=== PATIENT | male | born 1960 | race Caucasian/White ===

== ENCOUNTER 2018-02-22 07:30 | Inpatient (IN) | payer OTHER, SELFPAY ==
[2018-02-22] VITALS (31 sets, daily range): BP systolic 90–137; BP diastolic 56–107; PULSE 88–176; RESP 12–23; TEMP 36.6–36.9; O2SAT 94–98; BMI 38.0; BMI 38.1
--- NOTE | 2018-02-22 07:44 | ED.DCSUM_ITS ---
- ER Visit Summary Date of Service: 02/22/18 Chief Complaint: Recurrent A. fib History of Present Illness: The patient is a 57 M history of A. fib, non-insulin -dependent diabetes, hypertension, high cholesterol. Patient is currently on Xarelto and Cardizem for his A. fib. Believes that he went back into it sometime yesterday afternoon. Denies chest pain. Physical Examination: Vital signs his heart rate 176 and regular with A. fib RVR. His blood pressure is 123/73. H EENT exam unremarkable. Neck nontender no JVD. Lungs clear to auscultation bilaterally. Heart A. fib RVR rate about 170. Abdomen soft nontender. He is moving all 4 extremities. Calves are nontender without edema. Neurologically is awake and alert without focal motor deficits. Test Results: Portable one view chest x-ray showed no body read by myself. EKG showed atrial fibrillation with RVR with a heart rate of 176. Her white count of 14. Hemoglobin is 16. Electrolytes showed a normal gap of 15 and a creatinine which was elevated 2.1. Troponin was also elevated 0.076. Emergency Department Course and Treatment: Patient with recurrent A. fib RVR. Treated with IV Cardizem. Treatment Plan: Repeat exam currently the patient is resting comfortably. He is received 1 IV bolus of Cardizem. Is currently receiving a second bolus and was placed on a Cardizem drip. He is handling the A. fib RVR well. I discussed all test results with him and his . Disposition: Admission Impression: Recurrent atrial fibrillation with rapid ventricular rate History of com-[id number] diabetes. This note was generated with [employer] dictation software. It may contain incorrect words, spelling, and punctuation that were not noted in review of the chart prior to signing ED Disposition - Plan for ED Patient: Chief Complaint: Palpitations Referrals: Elder Morales MD [Primary Care Provider] -
[2018-02-22] MEDS: dilTIAZem 25 MG/5 ML Vial IV BOLUS (07:46)
[2018-02-22 07:48] LABS: Absolute Lymphocyte Count 3.83 X10^3/ul (0.83-4.51); Absolute Neutrophil Count 8.6 X10^3/uL (2.0-7.7); Basophil# 0.02 X10^3/uL; Basophil% 0.1 % (0-1); Eosinophil# 0.16 X10^3/uL; Eosinophils% 1.1 % (0-5); Hematocrit 49.5 % (40-54); Hemoglobin 16.6 g/dl (13.0-16.5); Lymphocyte # 3.83 X10^3/ul (4.0); Lymphocyte % 27.4 % (19-41); Mean Corp Hgb Conc 33.5 g/gl (32-36); Mean Corpuscular Hgb 29.5 pg (27.0-32.0); Mean Corpuscular Volume 88.1 fL (80-94); Mean Platelet Vol. 11.3 fl (6.2-12.0); Monocyte# 1.35 X10^3/uL; Monocyte% 9.7 % (0-10); Neutrophil # 8.57 X10^3/uL (2.7-7.7); Neutrophil % 61.4 % (47-70); Platelet Count 220 K/mm3 (150-450); RBC Distribution Width CV 13.9 % (11.6-14.6); RBC Distribution Width SD 44.5 fl (35.1-43.9); Red Blood Count 5.62 M/mm3 (4.6-6.2)
[2018-02-22 07:49] LABS: POSITIVE COUNT NO; POSITIVE DIFFERENTIAL NO; POSITIVE MORPHOLOGY NO
[2018-02-22 08:03] LABS: Anion Gap 15 (5-15); BUN 29 mg/dL (7-18); BUN/Creat Ratio 13.8 RATIO (10-20); Calcium,Total 9.6 mg/dL (8.5-10.1); Chloride 104 mmol/L (98-107); EST Glomerular Filtration Rate 35 mL/min (>60); Est Glom Filt Rate - Afr Amer 42 mL/min (>60); Glucose 186 mg/dL (74-106); Potassium 3.7 mmol/L (3.5-5.1); Sodium Level 141 mmol/L (136-145)
[2018-02-22] MEDS: dilTIAZem 25 MG/5 ML Vial 20 MG IV BOLUS (08:07)
--- NOTE | 2018-02-22 08:17 | NURSING ---
DR BOWEN JENSEN
[2018-02-22] MEDS: 0.9% Normal Saline 1,000 ML 999 ML IV ×2 (08:22→09:01)
--- NOTE | 2018-02-22 08:27 | NURSING ---
112 AFALEXI W BOWEN ZHENG/MIKEY
--- NOTE | 2018-02-22 08:30 | PCM.HP.STD ---
Problem List (1) Paroxysmal a-fib Status: Chronic (2) Morbid obesity with BMI of 40.0-44.9, adult Status: Chronic (3) Type II diabetes mellitus Status: Chronic (4) Hypertension Status: Chronic (5) Atrial fibrillation with RVR Status: Acute History of Present Illness Date of Admission: 02/22/18 Chief Complaint: Palpitations The patient is a 57 year old M with a h/o DM2, HTN, HLD and afib who presents after last night he noticed that he was having palpitations. He is on cardizem and xarelto at home and he thought that if he slept he may feel better. He woke up this morning with the same feeling of palpitations so he came into the ER. HE has been doing well recently, however his work-place is very hot and he feels he may have become dehydrated yesterday. He presented to the ER with A-fib in RVR, an LEE d/t dehydration and an SBP of 93. He was given 2 cardizem boluses and was started on IVF. His heart rate did come down but his afib did not resolve and he has had to be cardioverted in the past. Past Medical History Past Medical History (Chronic Problems): Chronic Problems Paroxysmal a-fib (Chronic) Sleep apnea (Chronic) LVH (left ventricular hypertrophy) (Chronic) Morbid obesity with BMI of 40.0-44.9, adult (Chronic) Type II diabetes mellitus (Chronic) Nonalcoholic steatohepatitis (Chronic) Hypertension (Chronic) Allergies Iodinated Contrast- Oral and IV Dye [Iodinated Contrast Media - IV Dye] Allergy (Severe, Verified 02/22/18 07:34) Anaphylaxis Home Medications: Ambulatory Orders Medication Instructions Recorded Atorvastatin Calcium [Lipitor] 10 mg PO QHS 02/22/18 Diltiazem HCl [Cartia Xt] 120 mg PO DAILY 02/22/18 Empagliflozin [Jardiance] 10 mg PO DAILY 02/22/18 Lisinopril [Zestril] 30 mg PO BID 02/22/18 Metformin HCl 1,000 mg PO BID 02/22/18 Omeprazole 40 mg PO DAILY 02/22/18 Pioglitazone HCl 15 mg PO DAILY 02/22/18 Rivaroxaban [Xarelto] 20 mg PO QHS 02/22/18 Sumatriptan Succinate [Imitrex] 100 mg PO .X1 PRN 02/22/18 Surgical History: cholecystectomy Psychiatric History: No pertinent psych hx Lives: Spouse/ Significant Other Smoking Status: Never smoker Alcohol: None Drugs: None - *Family History Maternal History Items: Diabetes, Heart Disease, Hypertension Paternal History Items: No pertinent history Review of Systems Constitutional: Denies: Chills, Fever, Weight Change Eyes: Denies: Blurred vision, Double vision HEENT: Denies: Head Aches, Sinus Congestion, Sinus Drainage Cardiovascular: Reports: Palpitations. Denies: Chest Pain, Chest Pressure, Chest Tightness, Light Headedness Respiratory: Denies: Cough, Shortness of breath at rest, Sputum production Gastrointestinal: Denies: Abdominal Pain, Nausea, Vomiting Genitourinary: Denies: Dysuria Musculoskeletal: Denies: Joint Pain, Joint Tenderness Skin: Denies: Rash, Wounds Neurological: Denies: Numbness, Tingling, Focal weakness Psychiatric: Denies: Anxiety, Depression, Homicidal Ideations, Suicidal Ideations Hematologic/ Lymphatic: Denies: Easy Bruising, Easy Bleeding VTE Information - Inpt Only VTE Present on Admission: No Patient Problems: Active and Suspected Problems Atrial fibrillation with RVR (Acute) - Physical Exam General: Alert, Oriented x3, Cooperative, No apparent distress HEENT: Atraumatic, EOMI, Normocephalic Oral: Moist Mucosa Neck: Supple, No JVD Lungs: Clear to auscultation, Normal air movement, No rhonchi, No wheeze, No rales Cardiovascular: Regular rate, Regular Rhythm, Normal S1, Normal S2, No murmurs Abdomen: Soft, Non Tender, Non-Distended, No Hepato-splenomegaly Extremities: No edema, Capillary Refill Less than 3 Seconds Skin: No rashes, No breakdown Neurological: Neuro grossly intact, Motor Exam 5/5 strength throughout, Sensory exam intact to light touch and pain Psych/Mental Status: Normal Affect, Appropriate Vital Signs Temp Pulse Resp BP Pulse Ox 97.9 F 115 H 18 93/63 98 02/22/18 07:31 02/22/18 08:09 02/22/18 08:09 02/22/18 08:09 02/22/18 08:09 Oxygen Flow Rate (L/min) 2 Oxygen Delivery Method Room Air Weight: 304 lb Body Mass Index (BMI) 38.0 Laboratory Tests Past 24 Hrs 02/22/18 02/22/18 07:35 07:35 WBC 14.0 H RBC 5.62 Hgb 16.6 H Hct 49.5 MCV 88.1 MCH 29.5 MCHC 33.5 RDW 13.9 RDW Differential 44.5 H Plt Count 220 MPV 11.3 Immature Gran % (Auto) 0.300 Neut % (Auto) 61.4 Lymph % (Auto) 27.4 Bond % (Auto) 9.7 Eos % (Auto) 1.1 Baso % (Auto) 0.1 Absolute Neuts (auto) 8.6 H Absolute Lymphs (auto) 3.83 Total Counted Not Reportable Sodium 141 Potassium 3.7 Chloride 104 Carbon Dioxide 22.0 Anion Gap 15 BUN 29 H Creatinine 2.10 H Estim Creat Clear Calc 47.50 Est GFR (MDRD) Af Amer 42 L Est GFR (MDRD) Non-Af 35 L BUN/Creatinine Ratio 13.8 Glucose 186 H Calcium 9.6 Troponin I 0.076 H Assessment/Plan All Active Problems Atrial fibrillation with RVR (Acute) 1. Paroxysmal a-fib with RVR/LEE secondary to dehydration/Elevated troponin d/t demand ischemia - He was given 2 boluses of cardizem in the ER and started on a cardizem drip which will be continued - He will probably have to increase his cardizem PO at home - May need to consult cardiology if his a-fib does not resolve medically for a possible cardioversion - Trend troponins and obtain TSH - Echo today - c/w xarelto 2. HTN/HLD - hold his lisinopril with his LEE - Cardizem gtt will control his BP - He did take his 120 mg of cardizem today - C/w lipitor 3. DM2 - he is on multiple outpatient medications which I held on admission - start SSI and monitor DVT: Xarelto Diet: DM Code: FULL Dispo: Plan to c/s cardiology if afib does not resolve Code Visit Inpatient E&M: 70860 Init Hosp L3
[2018-02-22 09:43] LABS: Thyroid Stim Hormone (TSH) 2.26 uIU/mL (0.358-3.74)
[2018-02-22] MEDS: 0.9% Normal Saline 1,000 ML 100 ML IV ×2 (09:43→16:31)
[2018-02-22] MEDS: Insulin Lispro 100 UNIT/ML INSULN.PEN SQ ×2 (11:05→21:01)
[2018-02-22 11:11] LABS: Bedside Glucose 159 mg/dL (70-110)
[2018-02-22] MEDS: Rivaroxaban 20 MG Tablet PO (16:29)
[2018-02-22 16:35] LABS: Bedside Glucose 122 mg/dL (70-110)
[2018-02-22] MEDS: Atorvastatin Calcium 10 MG Tablet PO (21:01)
[2018-02-22 21:11] LABS: Bedside Glucose 199 mg/dL (70-110)
[2018-02-23] VITALS (35 sets, daily range): BP systolic 108–147; BP diastolic 66–95; PULSE 77–161; RESP 11–30; TEMP 36.6–36.9; O2SAT 93–100
[2018-02-23] MEDS: 0.9% Normal Saline 1,000 ML 100 ML IV ×3 (02:57→21:40)
[2018-02-23 06:02] LABS: Anion Gap 12 (5-15); BUN 18 mg/dL (7-18); Calcium,Total 8.5 mg/dL (8.5-10.1); Chloride 107 mmol/L (98-107); Creatinine, Serum 1.06 mg/dL (0.70-1.30); EST Glomerular Filtration Rate 77 mL/min (>60); Est Glom Filt Rate - Afr Amer 93 mL/min (>60); Estimated Creatinine Clearance 94.11 ml/min; Glucose 140 mg/dL (74-106); Potassium 3.5 mmol/L (3.5-5.1); Sodium Level 141 mmol/L (136-145)
[2018-02-23 06:51] LABS: Bedside Glucose 143 mg/dL (70-110)
--- NOTE | 2018-02-23 09:41 | CASEMGMT ---
SW spoke with patient and his and completed assessment. Patient lives with his in a 1 story home. He has an appt at [facility] for his knee, but they do not remember the name of the physician. They do not anticipate any d/c needs. Gabriela SWEENEY MSW
[2018-02-23 11:30] LABS: Bedside Glucose 159 mg/dL (70-110)
[2018-02-23] MEDS: dilTIAZem 25 MG/5 ML Vial 10 MG IV BOLUS (12:09)
--- NOTE | 2018-02-23 14:14 | CASEMGMT ---
According to [employer] website, the following are in-network tertiary facilities: [facility], [facility], [facility], [facility], [facility], [facility], and . Bradley TUCKER CM
[2018-02-23] MEDS: dilTIAZem CD 240 MG Capsule PO (14:41)
--- NOTE | 2018-02-23 15:05 | PCM.CONS.C ---
Problem List (1) Atrial fibrillation with RVR Status: Acute (2) Paroxysmal a-fib Status: Chronic (3) Sleep apnea Status: Chronic (4) LVH (left ventricular hypertrophy) Status: Chronic (5) Type II diabetes mellitus Status: Chronic (6) Hypertension Status: Chronic Reason for Consult Date of Consultation: 02/23/18 Reason for Consultation: Paroxysmal atrial fibrillation, diabetes, obesity, obstructive sleep apnea, hypertension. History of Present Illness: The patient is a 57 year old M, initially seen by me in the hospital in consultation on 04/03/15. He has a history of obstructive sleep apnea, does not comply with CPAP, also has a history of hypertension and was discovered to have an JEANA after undergoing gallbladder surgery about 4 years ago. Patient presented in March 2015 with new onset atrial fibrillation with rapid ventricular response in the face of diarrhea, hypokalemia and hypomagnesemia. Patient was treated medically with oral anticoagulation, Coreg and digoxin. He underwent successful DC cardioversion on 03/22/15. The patient then returned in March 2015 with recurrent atrial fibrillation and was placed on Cardizem drip and switch to p.o. Cardizem. He underwent a stress test which was negative for inducible ischemia. Patient was again successfully cardioverted although I do not remember whether was chemically or by DC cardioversion. He has not undergone consultation with Dr. Gomes for atrial fibrillation ablation. To the best my knowledge the patient has been in normal sinus rhythm as he is very aware when he goes in and out of atrial fibrillation. While the patient had a flat tire on route 30 yesterday in the 90? heat, he noted that he went back in atrial fibrillation with rapid ventricular response. Patient had no associated chest pain or shortness of breath. He has been compliant with his Xarelto therapy for the past 3 years. When his atrial fibrillation did not improve he sought medical attention at [facility] ER where his initial EKG showed atrial fibrillation with rapid ventricular response. He was placed on IV Cardizem drip Currently the patient's and atrial fibrillation with rapid ventricular response, resting comfortably in his bed with his family at the bedside. He denies any symptoms at this time. He has not seen Dr. Valdez or Kulwant for CPAP management. His initial troponin was 0.076, then decrease to 0.074, and then finally 0.068.. Patient's potassium was found to be 3.4 and is being replaced with IV supplementation. His initial creatinine was 2.10 but with IV fluid resuscitation has decreased down to normal range. [] Past Medical History Allergies/Adverse Reactions: Allergies Iodinated Contrast- Oral and IV Dye [Iodinated Contrast Media - IV Dye] Allergy (Severe, Verified 02/22/18 07:34) Anaphylaxis Home Medications: Ambulatory Orders Medication Instructions Recorded Atorvastatin Calcium [Lipitor] 10 mg PO QHS 02/22/18 Diltiazem HCl [Cartia Xt] 120 mg PO DAILY 02/22/18 Empagliflozin [Jardiance] 10 mg PO DAILY 02/22/18 Lisinopril [Zestril] 30 mg PO BID 02/22/18 Metformin HCl 1,000 mg PO BID 02/22/18 Omeprazole 40 mg PO DAILY 02/22/18 Pioglitazone HCl 15 mg PO DAILY 02/22/18 Rivaroxaban [Xarelto] 20 mg PO QHS 02/22/18 Sumatriptan Succinate [Imitrex] 100 mg PO .X1 PRN 02/22/18 Past Medical History (Chronic Problems): Chronic Problems Paroxysmal a-fib (Chronic) Sleep apnea (Chronic) LVH (left ventricular hypertrophy) (Chronic) Morbid obesity with BMI of 40.0-44.9, adult (Chronic) Type II diabetes mellitus (Chronic) Nonalcoholic steatohepatitis (Chronic) Hypertension (Chronic) Surgical History: cholecystectomy Psychiatric History: No pertinent psych hx - *Family History Maternal History Items: Diabetes, Heart Disease, Hypertension Paternal History Items: No pertinent history Lives: Spouse/ Significant Other Smoking Status: Never smoker Alcohol: None Drugs: None Review of Systems - Review of Systems General: Denies: Fever, Night Sweats, Fatigue Cardiovascular: Reports: Palpitations. Denies: Chest Discomfort, Shortness of Breath, Orthopnea, PND, Lightheadedness, Dizziness, Near Syncope, Syncope Respiratory: Denies: Cough, Sputum Production, Hemoptysis Gastrointestinal: Denies: Hematemesis, Hematochezia, Melena Genitourinary: Denies: Dysuria, Hematuria Skin: Denies: Rash Subjectve: Patient laying in bed, no acute distress. Objective: Vital Signs Temp Pulse Resp BP Pulse Ox 97.9 F 120 H 17 129/87 H 97 02/23/18 13:00 02/23/18 14:30 02/23/18 14:30 02/23/18 14:30 02/23/18 14:30 Oxygen Flow Rate (L/min) 2 Oxygen Delivery Method Room Air Weight: 305 lb 1.916 oz Body Mass Index (BMI) 38.1 Intake and Output for Last 24 Hours 02/21/18 02/22/18 02/23/18 23:59 23:59 23:59 Intake Total 1681.2 / 1681.2 2464.2 / 2464.2 Balance 1681.2 / 1681.2 2464.2 / 2464.2 General: Awake, Alert, Oriented x 3 HEENT: PERRL, EOMI, Sclera Non Icteric Neck: Supple, Good ROM, No Lymph Node Enlargement Lungs: Clear to auscultation Cardiovascular: Irregular Rhythm, Normal S1, Normal S2, No Murmurs, No Rubs, No Gallops Vascular: No Carotid Bruits, Normal Femoral Pulses, Normal Radial Pulses, Normal Dorsalis Pedal Pulse, Normal Posterior Tibial Pulses Abdomen: Bowel Sounds Present, Soft, Non Tender, No HSM, No Organomegaly Extremities: No Cyanosis, No Clubbing, No edema Neurological: No Focal Motor or Sensory Deficit 02/23/18 05:10: Sodium 141, Potassium 3.5, Chloride 107, Carbon Dioxide 22.0, Anion Gap 12, BUN 18, Creatinine 1.06, Est GFR (MDRD) Af Amer 93, Est GFR (MDRD) Non-Af 77, BUN/Creatinine Ratio 17.0, Glucose 140 H, Calcium 8.5 Rhythm: EKG: ECHO: Echo today showed an EF of 65%, 1+ MR, unable to quantitate RVSP. Stress Test: Pending Cardiac Cath: PCI: CT Surgery: Holter monitor: EPS: PPM: CXR: Chest CT Scan: Assessment/Plan 1. Paroxysmal atrial fibrillation: The patient has been compliant with his Xarelto therapy, however he is hypo-to euvolemic, and appears to have suffered acute dehydration due to his excessive water loss during the time he was changing his tire on route [address] on Wednesday. The patient has been adequately IV fluid resuscitated however his potassium has not been replaced. His heart rate is not responding to IV Cardizem drip. Previous to this he was on Cardizem CD 120 mg p.o. twice daily and reports he was compliant with that. Unfortunately he is unable to tolerate CPAP mask. I recommended the patient's potassium be replaced, and that we start him on flecainide 100 mg p.o. twice daily. It is possible the patient may chemically cardiovert back to normal rhythm, and if so we will not need to do DC cardioversion. In anticipation of using long-term flecainide therapy and the fact that his last stress test was around 4 years ago, I recommend he undergo a non-walking nuclear stress test tomorrow morning. His troponin release is only minimally elevated, most likely represents type II demand ischemia. He has no anginal symptoms and no dynamic EKG changes to suggest ischemia. He reports he has never had a catheterization in the past. If the patient's stress test is markedly abnormal for ischemia, I would have a low threshold for diagnostic coronary angiography to evaluate him for antiarrhythmic therapy. If however his atrial fibrillation is not chemically cardioverted, and assuming his stress test is negative for inducible ischemia, we will make arrangements for the patient have an elective DC cardioversion tomorrow morning. Either way I would recommend lifelong anticoagulation therapy with Xarelto or equivalent. If the patient is found to have significant coronary disease he may require amiodarone treatment or, more preferably atrial fibrillation ablation so as to preclude him from having to have long-term amiodarone therapy. In addition we will obtain a TSH and T4. 2. Coronary artery disease: Patient has several risk factors for coronary artery disease, and may require lifelong anti-arrhythmic therapy. Echocardiogram shows intact LV function and unable to quantitate RVSP. Recommend a non-walking nuclear stress test. If this is grossly abnormal for ischemia we will need to hold his Xarelto for 3 days time followed by elective cardioversion probably on Wednesday. 3. Hyperlipidemia: Recommend obtaining a fasting lipid profile for further risk stratification. Patient does have a history of MARSHALL which may preclude excessive and aggressive use of statin based medications. For now he can continue Lipitor 10 mg p.o. nightly. 4. Thank you very much for the opportunity to participate in the cardiac care of your patient. Consultation time took place between 2 PM and 2:35 PM. All questions answered of the patient and his family. Code Visit Inpatient E&M: 46050 Init Hosp L2
[2018-02-23 16:03] LABS: Cholesterol 69 mg/dL (200); High Density Lipoprotein 31 mg/dL; Triglycerides 145 mg/dL; Very Low Density Lipoprotein 29 mg/dL (5-40)
[2018-02-23 16:40] LABS: Bedside Glucose 200 mg/dL (70-110)
[2018-02-23] MEDS: Insulin Lispro 100 UNIT/ML INSULN.PEN SQ (16:46)
[2018-02-23] MEDS: Flecainide 100 MG Tablet PO ×2 (16:46→21:10)
[2018-02-23] MEDS: Rivaroxaban 20 MG Tablet PO (16:47)
--- NOTE | 2018-02-23 18:13 | PCM.PN.HOSP ---
Patient Problems: Active and Suspected Problems Atrial fibrillation with RVR (Acute) Subjective: f/u for afib with RVR Patient seen and examined Looks and feels better Still tachy though Vitals/I&O's: Vital Signs Temp Pulse Resp BP Pulse Ox 97.9 F 120 H 19 H 127/89 H 96 02/23/18 17:00 02/23/18 17:00 02/23/18 17:00 02/23/18 17:00 02/23/18 17:00 Oxygen Flow Rate (L/min) 2 Oxygen Delivery Method Room Air Weight: 138.4 kg Body Mass Index (BMI) 38.1 Intake and Output for Last 24 Hours 02/21/18 02/22/18 02/23/18 23:59 23:59 23:59 Intake Total 1681.2 / 1681.2 2464.2 / 2464.2 Balance 1681.2 / 1681.2 2464.2 / 2464.2 General: Alert, Oriented x3, Cooperative Lungs: - - non labored Abdomen: - - moves with resp Laboratory Results 02/22/18 20:59: POC Glucose 199 H 02/23/18 05:10: Sodium 141, Potassium 3.5, Chloride 107, Carbon Dioxide 22.0, Anion Gap 12, BUN 18, Creatinine 1.06, Estim Creat Clear Calc 94.11, Est GFR (MDRD) Af Amer 93, Est GFR (MDRD) Non-Af 77, BUN/Creatinine Ratio 17.0, Glucose 140 H, Calcium 8.5 02/23/18 05:10: Triglycerides 145, Cholesterol 69, LDL Cholesterol 9, VLDL Cholesterol 29, HDL Cholesterol 31 L 02/23/18 06:46: POC Glucose 143 H 02/23/18 11:25: POC Glucose 159 H 02/23/18 16:33: POC Glucose 200 H Current Medications Atorvastatin Calcium (Lipitor) 10 mg PO QHS [facility] Last Admin: 02/22/18 21:01 Dose: 10 mg Dextrose (D50w Syringe) 0 gm IV X1 PRN; Protocol PRN Reason: Hypoglycemia Diltiazem HCl (Cardizem Cd) 240 mg PO DAILY [facility] Last Admin: 02/23/18 14:41 Dose: 240 mg Flecainide Acetate (Tambocor) 100 mg PO BID [facility] Last Admin: 02/23/18 16:46 Dose: 100 mg Glucagon () 1 mg IM .X1 PRN PRN Reason: Hypoglycemia Sodium Chloride () 1,000 mls @ 100 mls/hr IV .Q10H [facility] Last Admin: 02/23/18 12:53 Dose: 100 mls/hr Diltiazem HCl 125 mg/ Dextrose 125 mls @ 15 mls/hr IV .Q8H20M [facility] PRN Reason: 15 MG/HR Potassium Chloride (Kcl 10meq/100ml) 10 meq in 100 mls @ 100 mls/hr IV BOLUS Q1H [facility] Stop: 02/23/18 18:59 Last Admin: 02/23/18 16:48 Dose: 100 mls/hr Insulin Human Lispro (Humalog Kwikpen (Bkc)) 0 unit SQ ACHS [facility] PRN Reason: Protocol Last Admin: 02/23/18 16:46 Dose: 4 units Magnesium Hydroxide (Milk Of Magnesia) 30 ml PO DAILY PRN PRN Reason: Constipation Pantoprazole Sodium (Protonix) 40 mg PO DAILY [facility] Last Admin: 02/23/18 09:55 Dose: Not Given Rivaroxaban (Xarelto) 20 mg PO DAILY@1700 [facility] Last Admin: 02/23/18 16:47 Dose: 20 mg Rizatriptan Benzoate (Maxalt) 10 mg PO X1 PRN PRN Reason: MIGRAINE SYMPTOMS Sodium Chloride () 5 - 30 ml IV UD PRN PRN Reason: SALINE FLUSH Medical Necessity - Tobacco Use Smoking Status: Never smoker Assessment/Plan All Active Problems Atrial fibrillation with RVR (Acute) 1. Paroxysmal a-fib with RVR. On cardizem drip cardiology consulted. Rate not quite optimally controlled and patient on max dose of cardizem drip Consider adding Amiodarone - Echo today - c/w xarelto 2. HTN/HLD - continue to hold his lisinopril with his LEE 3. DM2 - fair control - Started on SSI. May add basal insulin 4. LEE/Likely prerenal from dehydration. Continue fluid resuscitation Lisinopril on hold. Krystle greco tomorrow Code Visit Inpatient E&M: [id number] [facility] [place] Hosp L3
[2018-02-23] MEDS: Atorvastatin Calcium 10 MG Tablet PO (21:10)
[2018-02-23 21:15] LABS: Bedside Glucose 136 mg/dL (70-110)
[2018-02-24] VITALS (37 sets, daily range): BP systolic 108–149; BP diastolic 70–128; PULSE 74–141; RESP 11–23; TEMP 36.4–37; O2SAT 16–99
[2018-02-24 06:00] LABS: Absolute Neutrophil Count 5.1 X10^3/uL (2.0-7.7); Basophil# 0.01 X10^3/uL; Basophil% 0.1 % (0-1); Eosinophil# 0.08 X10^3/uL; Hematocrit 44.6 % (40-54); Hemoglobin 15.3 g/dl (13.0-16.5); Lymphocyte % 28.6 % (19-41); Mean Corp Hgb Conc 34.3 g/gl (32-36); Mean Corpuscular Hgb 29.7 pg (27.0-32.0); Mean Corpuscular Volume 86.4 fL (80-94); Monocyte# 0.58 X10^3/uL; Monocyte% 7.2 % (0-10); Neutrophil # 5.06 X10^3/uL (2.7-7.7); Neutrophil % 62.9 % (47-70); Platelet Count 162 K/mm3 (150-450); RBC Distribution Width CV 13.6 % (11.6-14.6); Red Blood Count 5.16 M/mm3 (4.6-6.2); White Blood Count 8.1 K/mm3 (4.4-11.0)
[2018-02-24] MEDS: Flecainide 100 MG Tablet PO (06:03)
[2018-02-24 06:05] LABS: POSITIVE COUNT NO; POSITIVE DIFFERENTIAL NO; POSITIVE MORPHOLOGY NO
[2018-02-24 06:13] LABS: International Normalized Ratio 1.6; Partial Thromboplast Time 34.1 Seconds (24.1-36.2); Prothrombin Time (Protime)PT. 19.4 SECONDS (11.7-14.9)
[2018-02-24 06:30] LABS: Anion Gap 9 (5-15); BUN 12 mg/dL (7-18); BUN/Creat Ratio 13.3 RATIO (10-20); Calcium,Total 8.5 mg/dL (8.5-10.1); Chloride 106 mmol/L (98-107); EST Glomerular Filtration Rate 93 mL/min (>60); Est Glom Filt Rate - Afr Amer 113 mL/min (>60); Estimated Creatinine Clearance 110.84 ml/min; Glucose 155 mg/dL (74-106); Potassium 3.6 mmol/L (3.5-5.1); Sodium Level 138 mmol/L (136-145)
[2018-02-24 06:55] LABS: Bedside Glucose 179 mg/dL (70-110)
--- NOTE | 2018-02-24 12:02 | STRESSREP ---
Stress Test Report Date: 02/24/2018 Procedure: Pharmacologic stress nuclear imaging study Indications: Palpitations; atrial fibrillation Consent: Per the patient Procedure: The patient underwent pharmacologic (Regadenoson) evaluation with a peak heart rate of 164 beats per minute (99 predicted maximal heart rate) and a peak blood pressure of 150/88 mmHg. The baseline ECG demonstrated atrial fibrillation; nonspecific ST/T-wave abnormality. The peak pharmacologic ECG demonstrated no obvious ECG changes. There was an occasional PVC during recovery. There was no complaint of chest discomfort during pharmacologic infusion or recovery. The examination was discontinued secondary to completion of protocol. Impression: 1. Pharmacologic (Regadenoson) evaluation 2. Peak pharmacologic ECG with continued nonspecific ST and T-wave abnormality with no obvious ECG changes compared to baseline. 3. There was an occasional PVC during recovery 4. Nuclear images pending Myocardial perfusion imaging study: Technique: The patient was injected with 14.9 millicuries of technetium 99m Cardiolite and subsequently rest SPECT Cardiolite nuclear imaging was obtained in the horizontal long, vertical long, and short axis views. The patient underwent pharmacologic (Regadenoson) evaluation with a peak heart rate of 164 beats per minute (99 % percent predicted maximal heart rate) and a peak blood pressure of 150/88 mmHg. The patient was injected with 44.6 millicuries of technetium 99m Cardiolite and subsequently stress SPECT Cardiolite nuclear imaging was obtained in the horizontal long, vertical long, and short axis views. A gated Cardiolite study at peak stress was obtained. Interpretation: Rest and stress SPECT Cardiolite nuclear imaging status post realignment, normalization, and attenuation correction demonstrate appearance of relative uniform tracer uptake and myocardial perfusion appearing within normal limits. There is end systolic thickening and brightening. The gated Cardiolite study demonstrates myocardial thickening and inward wall motion. The reported LVEF is 55 %. Impression: 1. Rest and stress SPECT Cardiolite nuclear imaging demonstrate relative uniform tracer uptake and myocardial perfusion appearing within normal limits. 2. The gated Cardiolite study reports an LVEF of 55 %. This note was generated with [employer] software. It may contain incorrect words, spelling, and punctuation that were not noted in checking the note before signing.
[2018-02-24] MEDS: dilTIAZem CD 240 MG Capsule PO (12:06)
[2018-02-24] MEDS: Pantoprazole Sodium 40 MG Tablet PO (12:07)
[2018-02-24 12:10] LABS: Bedside Glucose 182 mg/dL (70-110)
[2018-02-24] MEDS: Propofol 200 MG/20 ML Vial 140 MG IV BOLUS (12:35)
--- NOTE | 2018-02-24 12:43 | NURSING ---
Cardioversion completed at this time, Dr. Falcon, Dr. Blum and parking lot laborer RNs in room, vss, shocked x1 with 200J. EKG to confirm NSR
--- NOTE | 2018-02-24 12:57 | PCM.PN.CARD ---
Subjectve: Patient doing well this morning, stress test this morning was negative for inducible ischemia. Patient underwent successful flecainide assisted DC cardioversion without complications on a single shock. Currently normal sinus rhythm. Objective: Vital Signs Temp Pulse Resp BP Pulse Ox 98.2 F 103 H 18 117/92 H 98 02/24/18 09:00 02/24/18 12:50 02/24/18 12:50 02/24/18 12:50 02/24/18 12:50 Oxygen Flow Rate (L/min) 2 Oxygen Delivery Method Room Air Weight: 305 lb 1.916 oz Body Mass Index (BMI) 38.1 Intake and Output for Last 24 Hours 02/22/18 02/23/18 02/24/18 23:59 23:59 23:59 Intake Total 1681.2 / 1681.2 4857.3 / 4857.3 1431.7 / 1431.7 Balance 1681.2 / 1681.2 4857.3 / 4857.3 1431.7 / 1431.7 General: Awake, Alert, Oriented x 3 HEENT: PERRL, EOMI, Sclera Non Icteric Neck: Supple, Good ROM, No Lymph Node Enlargement Lungs: Clear to auscultation Cardiovascular: Regular Rhythm, Normal S1, Normal S2, No Murmurs, No Rubs, No Gallops Vascular: No Carotid Bruits, Normal Femoral Pulses, Normal Radial Pulses, Normal Dorsalis Pedal Pulse, Normal Posterior Tibial Pulses Abdomen: Bowel Sounds Present, Soft, Non Tender, No HSM, No Organomegaly Extremities: No Cyanosis, No Clubbing, No edema Neurological: No Focal Motor or Sensory Deficit 02/23/18 05:10: Triglycerides 145, Cholesterol 69, LDL Cholesterol 9, VLDL Cholesterol 29, HDL Cholesterol 31 L 02/24/18 05:45: WBC 8.1, RBC 5.16, Hgb 15.3, Hct 44.6, MCV 86.4, MCH 29.7, MCHC 34.3, RDW 13.6, RDW Differential 43.0, Plt Count 162, MPV 11.0, Immature Gran % (Auto) 0.200, Neut % (Auto) 62.9, Lymph % (Auto) 28.6, [place] % (Auto) 7.2, Eos % (Auto) 1.0, Baso % (Auto) 0.1, Absolute Neuts (auto) 5.1, Total Counted Not Reportable 02/24/18 05:45: PT 19.4 H, INR 1.6, APTT 34.1 02/24/18 05:45: Sodium 138, Potassium 3.6, Chloride 106, Carbon Dioxide 23.0, Anion Gap 9, BUN 12, Creatinine 0.90, Est GFR (MDRD) Af Amer 113, Est GFR (MDRD) Non-Af 93, BUN/Creatinine Ratio 13.3, Glucose 155 H, Calcium 8.5 Rhythm: EKG: ECHO: Stress Test: Negative for inducible ischemia. Cardiac Cath: PCI: CT Surgery: Holter monitor: EPS: PPM: CXR: Chest CT Scan: Medical Necessity - Tobacco Use Smoking Status: Never smoker Assessment/Plan 1. Paroxysmal atrial fibrillation: The patient has been compliant with his Xarelto therapy, however he is hypo-to euvolemic, and appears to have suffered acute dehydration due to his excessive water loss during the time he was changing his tire on route 30 on Wednesday. The patient has been adequately IV fluid resuscitated however his potassium has not been replaced. His heart rate is not responding to IV Cardizem drip. Previous to this he was on Cardizem CD 120 mg p.o. twice daily and reports he was compliant with that. Unfortunately he is unable to tolerate CPAP mask. I recommended the patient's potassium be replaced, and that we start him on flecainide 100 mg p.o. twice daily. Patient did not chemically converted with flecainide alone. In anticipation of using long-term flecainide therapy and the fact that his last stress test was around 4 years ago, I recommended he undergo a non-walking nuclear stress test. This was performed this morning which was negative for inducible ischemia. His troponin release is only minimally elevated, most likely represents type II demand ischemia. He has no anginal symptoms and no dynamic EKG changes to suggest ischemia. He reports he has never had a catheterization in the past. As the stress test was negative, patient underwent successful DC cardioversion without complications to normal sinus rhythm. He spontaneously awoke, moves all 4 extremities, tolerated the procedure well. If the patient's sinus rhythm remained durable, I recommend he continue flecainide therapy 100 mg p.o. twice daily and return in 1 week's time for an EKG in our office. He will also continue anticoagulation going forward. I have also asked Dr. Blum to see the patient to determine if he can assist with additional CPAP therapy. The patient is unfortunately unable to tolerate CPAP due to the mask, but perhaps there are some techniques available that would assist with this. In addition we will obtain a TSH and T4. 2. Coronary artery disease: Patient has several risk factors for coronary artery disease, and may require lifelong anti-arrhythmic therapy. Echocardiogram shows intact LV function and unable to quantitate RVSP. Recommend a non-walking nuclear stress test. If this is grossly abnormal for ischemia we will need to hold his Xarelto for 3 days time followed by elective cardioversion probably on Wednesday. 3. Hyperlipidemia: Recommend obtaining a fasting lipid profile for further risk stratification. Patient does have a history of MARSHALL which may preclude excessive and aggressive use of statin based medications. For now he can continue Lipitor 10 mg p.o. nightly. 4. Thank you very much for the opportunity to participate in the cardiac care of your patient. Patient may be discharged home. Patient to undergo an EKG in 1 week's time in our office. Patient may be off work until this upcoming Wednesday. Code Visit Inpatient E&M: 65713 Subs Hosp L2
--- NOTE | 2018-02-24 13:01 | PCM.OP.BLANK ---
Problem List (1) Atrial fibrillation with RVR Status: Acute (2) Paroxysmal a-fib Status: Chronic (3) Sleep apnea Status: Chronic (4) LVH (left ventricular hypertrophy) Status: Chronic (5) Type II diabetes mellitus Status: Chronic (6) Hypertension Status: Chronic Operative Report Date of Procedure: 02/24/18 Cardioversion report: Patient remained in atrial fibrillation overnight despite flecainide therapy. His heart rate was better controlled although not optimized with increasing his Cardizem CD. Patient has been compliant with his Xarelto therapy for the past several years. He underwent a stress test this morning which was negative for inducible ischemia. The risks/benefits of the cardioversion procedure were thoroughly expanded the patient and his and informed consent was obtained. With the assistance of Dr. Trip Blum the patient was consented for cardioversion, and the defibrillator pads were placed in the AP position. Patient was given a total of 140 mg of IV propofol in several increments, and once adequate sedation was obtained the patient received a single 200 J biphasic synchronized shock which converted him from atrial fibrillation immediately to normal sinus rhythm. This rhythm remained durable, the pads were removed, the patient spontaneously awoke, moves all 4 extremities and tolerated the procedure well. Conclusions: Successful flecainide assisted DC cardioversion with a single 200 J biphasic synchronized shock. Recommendations: Patient will continue flecainide 100 mg p.o. twice daily, Xarelto, and Cardizem CD 240 mg p.o. daily. He will return to our office in 1 week's time for an EKG to check his QT corrected interval. I advised the patient to avoid very stressful and hot situations which may deplete him on potassium and magnesium and trigger atrial fibrillation. In addition, he will be seen by Dr. Trip Blum for adjustments of his CPAP mask to assist with his obstructive sleep apnea. Patient taught procedure well no complications. Many thanks to Dr. Trip Blum.
--- NOTE | 2018-02-24 13:04 | PCM.OP.BLANK ---
Operative Report Date of Procedure: 02/24/18 CONSCIOUS SEDATION REPORT DATE OF SERVICE: February 24, 2018 BRIEF HISTORY OF PRESENT ILLNESS: The patient is a 57-year-old male who presented to [facility] on February 22 with recurrent atrial fibrillation with rapid ventricular response. He is currently anticoagulated on Xarelto. The patient's last surface echocardiogram revealed an ejection fraction of 65%. He does have a suspected history of obstructive sleep apnea. He has previously undergone a cardioversion approximately 3 years ago. As part of his admission workup, the patient underwent a cardiac stress test which was negative for inducible ischemia. The patient denies a history of previous anesthetic complications. PHYSICAL EXAMINATION: VITAL SIGNS: Reviewed and were acceptable. GENERAL: The patient is an obese male, in no apparent distress, speaking in full sentences. HEENT: Normocephalic, atraumatic. Mucous membranes are moist and pink. Good mouth opening noted. Trachea is midline. Good neck mobility. MPIII CHEST: S1, S2 irregularly irregular. No murmurs, rubs or gallops were noted. LUNGS: Clear to auscultation bilaterally without appreciable wheezes, rales or rhonchi. ABDOMEN: Soft, nontender, nondistended. Positive bowel sounds. Obese. EXTREMITIES: There is no clubbing, cyanosis or edema. ASA Class: II DESCRIPTION OF PROCEDURE: After confirmation of informed consent, the patient's anesthesia plan was reviewed in detail. Propofol was chosen. Risks and benefits were reviewed and the patient agreed to proceed. At 1236, the patient was given his first bolus of propofol. In total, he required 140 mg of propofol to achieve an appropriate level of sedation. Following this, the patient was given a 200 joule synchronized cardioversion by Dr. Falcon at the bedside. This was successful in achieving normal sinus rhythm. The patient was monitored until 1244, at which time he reached his baseline mental status and function. The patient tolerated the procedure well. COMPLICATIONS: None ESTIMATED BLOOD LOSS: None RECOMMENDATIONS: Okay to recover in usual fashion. Code Visit [id number]: Other Procedure See Report - [id number]
[2018-02-24 13:26] LABS: Bedside Glucose 162 mg/dL (70-110)
[2018-02-24] MEDS: Insulin Lispro 100 UNIT/ML INSULN.PEN SQ (13:52)
--- NOTE | 2018-02-24 16:19 | PCM.DC ---
- Discharge Diagnoses Current Active Problems: Current Active and Chronic Problems Atrial fibrillation with RVR (Acute) Acute kidney injury Severe dehydration You will use the following diet at home:: No restrictions, Regular Discharge Activity: Return to Normal Activity, No Restrictions Return to work on:: 03/01/18 Allergies/Adverse Reactions: Allergies Iodinated Contrast- Oral and IV Dye [Iodinated Contrast Media - IV Dye] Allergy (Severe, Verified 02/22/18 07:34) Anaphylaxis Medications to take at Discharge Atorvastatin Calcium [Lipitor] 10 mg PO QHS 02/22/18 Empagliflozin [Jardiance] 10 mg PO DAILY 02/22/18 Metformin HCl 1,000 mg PO BID 02/22/18 Omeprazole 40 mg PO DAILY 02/22/18 Pioglitazone HCl 15 mg PO DAILY 02/22/18 Rivaroxaban [Xarelto] 20 mg PO QHS 02/22/18 Sumatriptan Succinate [Imitrex] 100 mg PO .X1 PRN 02/22/18 Flecainide [Tambocor] 100 mg PO BID #60 tab 02/24/18 Lisinopril [Zestril] 40 mg PO DAILY #30 tab 02/24/18 The following prescriptions were given: Lisinopril [Zestril] 40 mg PO DAILY #30 tab Flecainide [Tambocor] 100 mg PO BID #60 tab Please follow up with your Primary Care Physician in: 2 weeks Test Results: Test results from this visit will be discussed in further detail at your follow-up appointment, if applicable. Please Follow Up With: Jitendra Falcon MD When: 1 week in the office Please Follow Up With: Trip Blum DO When: 2 weeks in the office Proposed Discharge Date: 02/24/18
--- NOTE | 2018-02-24 16:27 | PCM.DC.SUM ---
Discharge Date and Diagnosis - Problem List Patient Problems: Active and Suspected Problems Atrial fibrillation with RVR (Acute) Acute kidney injury (Acute) Acute kidney insufficiency (Acute) Dehydration, severe (Acute) Date of Admission: 02/22/18 Date of Discharge: 02/24/18 - Primary Discharge Diagnosis Active and Suspected Problems Atrial fibrillation with RVR (Acute) Acute kidney injury severe dehydration - Secondary Discharge Diagnosis Chronic Problems Paroxysmal a-fib (Chronic) Sleep apnea (Chronic) LVH (left ventricular hypertrophy) (Chronic) Morbid obesity with BMI of 40.0-44.9, adult (Chronic) Type II diabetes mellitus (Chronic) Nonalcoholic steatohepatitis (Chronic) Hypertension (Chronic) Hospital Course and Treatment Operations: None Procedures: 2-D Echocardiogram, Cardioversion - successful cardioversion on one attempt, Stress test - normal stress test Summary of Care Provided: The patient is a 57 year old M with DM2, HTN and morbid obesity, MICHAEL non [id number] with CPAP and paroxysmal atrial fibrillation. Admitted for atroal fibrillation with RVR with heart rate in the 140s. Also had acute kidney injury from severe dehydration on presentation as well. Was seen by cardiology. Underwent stress test and today successfully cardioverted with DC cardioversion and tolerated the procedure well. Started on Flecainide for antiarrhythmic therapy. Treated with IV fluids aggressively and renal function has returned to normal/baseline. Doing well at this time is stable for discharge home Will follow up with cardiology in 1 week for EKG and to monitor QT interval Will f/u with pulmonology to look into his sleep apnea and CPAP. Will need to repeat BMP in 1 week. Instructed to stay well hydrated. Weight loss and healthy lifestyle emphasized. Stress reduction emphasized on as well ] Discharge Activity: Return to Normal Activity, No Restrictions Return to work on:: 03/01/18 Home Medications: Medications to take at Discharge Atorvastatin Calcium [Lipitor] 10 mg PO QHS 02/22/18 Empagliflozin [Jardiance] 10 mg PO DAILY 02/22/18 Metformin HCl 1,000 mg PO BID 02/22/18 Omeprazole 40 mg PO DAILY 02/22/18 Pioglitazone HCl 15 mg PO DAILY 02/22/18 Rivaroxaban [Xarelto] 20 mg PO QHS 02/22/18 Sumatriptan Succinate [Imitrex] 100 mg PO .X1 PRN 02/22/18 Flecainide [Tambocor] 100 mg PO BID #60 tab 02/24/18 Lisinopril [Zestril] 40 mg PO DAILY #30 tab 02/24/18 Following Prescrptions Were Given to Patient: Lisinopril [Zestril] 40 mg PO DAILY #30 tab Flecainide [Tambocor] 100 mg PO BID #60 tab Primary Care Physician: Elder Morales MD [Primary Care Provider] - Please follow up with your Primary Care Physician in: 2 weeks Please Follow Up With: Jitendra Falcon MD When: 1 week in the office Please Follow Up With: Trip Blum DO When: 2 weeks in the office Medical Necessity - Tobacco Use Smoking Status: Never smoker Meaningful Use Info Meaningful Use Diagnoses (Choose all that apply): None applicable Code Visit Inpatient E&M: 89325 Disch Hosp
[2018-02-24] MEDS: Rivaroxaban 20 MG Tablet PO (16:37)
== END 2018-02-24 17:05 | disposition home or self-care (01) | DRG 309 ==
LOC: ED 08:23 → PCU 08:28
PROVIDERS: Internal Medicine Cardiovascular Disease; Admitting Provider Family Medicine; Emergency Provider Emergency Medicine; Family Provider Family Medicine; PCP Family Medicine; Visit Provider Internal Medicine
DX: I48.0 Paroxysmal atrial fibrillation (principal); N17.9 Acute kidney failure, unspecified; E86.0 Dehydration; E66.01 Morbid (severe) obesity due to excess calories; E11.9 Type 2 diabetes mellitus without complications; K75.81 Nonalcoholic steatohepatitis (NASH); G47.33 Obstructive sleep apnea (adult) (pediatric); E78.5 Hyperlipidemia, unspecified; I11.9 Hypertensive heart disease without heart failure; Z68.38 Body mass index [BMI] 38.0-38.9, adult
CPT/HCPCS: 36415; 71045; 78452; 80048; 80061; 82962; 83735; 84443; 84484; 85025; 85610; 85730; 92960; 93005; 93017; 93306; 99283; A9500; J7030; A4216; J2785

== ENCOUNTER → 2018-03-02 15:38 | Outpatient (CLI) | payer OTHER, SELFPAY ==
[2018-03-02 17:39] LABS: Anion Gap 14 (5-15); BUN 30 mg/dL (7-18); BUN/Creat Ratio 17.3 RATIO (10-20); Calcium,Total 10.2 mg/dL (8.5-10.1); Chloride 100 mmol/L (98-107); Creatinine, Serum 1.73 mg/dL (0.70-1.30); EST Glomerular Filtration Rate 44 mL/min (>60); Est Glom Filt Rate - Afr Amer 53 mL/min (>60); Glucose 144 mg/dL (74-106); Potassium 4.2 mmol/L (3.5-5.1); Sodium Level 137 mmol/L (136-145)
== END ==
PROVIDERS: Family Provider Family Medicine; PCP Family Medicine; Visit Provider Internal Medicine
DX: N17.9 Acute kidney failure, unspecified (principal)
CPT/HCPCS: 36415; 80048

== ENCOUNTER 2018-08-05 11:36 | Emergency (ER) | payer OTHER, SELFPAY ==
[2018-06-09 16:24] VITALS: BMI 39.6
[2018-08-05] VITALS (10 sets, daily range): BP systolic 108–139; BP diastolic 71–88; PULSE 88–147; RESP 12–24; TEMP 36.6; O2SAT 91–97; BMI 38.0
--- NOTE | 2018-08-05 11:35 | EKG12_ITS ---
Test Reason : TACHYCARDIA Blood Pressure : / mmHG Vent. Rate : 147 BPM Atrial Rate : 147 BPM P-R Int : 000 ms QRS Dur : 094 ms QT Int : 336 ms P-R-T Axes : 000 004 -07 degrees QTc Int : 525 ms Atrial flutter 2:1 block Otherwise normal ECG Confirmed by XAVIER CAPELLAN, AMY ([id number]), editor newspaper TIFFANIE FELDMAN ([id number]) on 08/08/2018 10:37:03 AM Referred By: DIANNA Confirmed By:AMY PARK MD
[2018-08-05] MEDS: Enoxaparin 120 MG/0.8 ML Syringe SC (12:25)
[2018-08-05] MEDS: Propofol 200 MG/20 ML Vial IV BOLUS (13:22)
--- NOTE | 2018-08-05 13:36 | EKG12_ITS ---
Test Reason : REPEAT EKG Blood Pressure : / mmHG Vent. Rate : 094 BPM Atrial Rate : 094 BPM P-R Int : 162 ms QRS Dur : 092 ms QT Int : 386 ms P-R-T Axes : 062 042 029 degrees QTc Int : 482 ms Normal sinus rhythm Prolonged QT Abnormal ECG Confirmed by AMY PRAK MD ([id number]), book or script editor TIFFANIE FELDMAN ([id number]) on 08/08/2018 10:17:12 AM Referred By: ANGIE Confirmed By:AMY PARK MD
--- NOTE | 2018-08-05 13:42 | ED.VISSUMM ---
- ER Visit Summary Date of Service: 08/05/18 Chief Complaint: Palpitations History of Present Illness: The patient is a 57 M who presents with palpitations. Patient has a history of atrial fibrillation and atrial flutter. He had an ablation done in June at [facility] [place]. He woke up this morning with palpitations. He has not had any chest pain. He does take Xarelto. He called [facility] [place] and they stated that he could wait till Wednesday to have a cardioversion. He spoke with Dr. Falcon who had him come to the office and confirmed atrial flutter on EKG. He sent him to the ER for a cardioversion. Physical Examination: Vital signs reviewed. HEENT exam unremarkable. Heart is tachycardic and regular rhythm without murmurs. Lungs are clear to auscultation. Abdomen is soft and nontender. Extremities reveal no edema. Skin exam normal. Neurologic exam normal. Test Results: EKG reveals atrial flutter with a 2-1 block. Rate of 147. No ST changes Emergency Department Course and Treatment: I spoke with Dr. Falcon who did confirm the patient needed electrically cardioverted. I gave him 1 dose of Lovenox approximately 40 minutes before cardioversion. After informed consent, the patient was given 130 total milligrams of propofol. 200 J of synchronized cardioversion was applied. Patient had good conversion to sinus rhythm. He recovered well. Patient will continue his home meds and will follow up with Dr. Falcon Treatment Plan: [] Disposition: Discharge Impression: Atrial flutter Procedural sedation with electrical cardioversion This note was generated with [employer] dictation software. It may contain incorrect words, spelling, and punctuation that were not noted in review of the chart prior to signing ED Disposition - Plan for ED Patient: Referrals: Elder Morales MD [Primary Care Provider] -
--- NOTE | 2018-08-05 13:44 | ED.DEP ---
ED Disposition - Plan for ED Patient: Disposition: Home or Assisted Living Instructions: ED Paroxysmal Atrial Flutter Referrals: Elder Morales MD [Primary Care Provider] -
== END 2018-08-05 14:26 | disposition home or self-care (01) ==
PROVIDERS: Emergency Provider Emergency Medicine; Family Provider Family Medicine; PCP Family Medicine
DX: I48.92 Unspecified atrial flutter (principal); I48.91 Unspecified atrial fibrillation
CPT/HCPCS: 92960; 36591; 93005; 96372; 99285; J7040; A4216

== ENCOUNTER → 2018-12-30 20:02 | Outpatient (CLI) | payer OTHER, SELFPAY ==
[2018-11-24 10:14] VITALS: BMI 36.6
== END ==
PROVIDERS: Family Provider Family Medicine; PCP Family Medicine; Visit Provider Internal Medicine Critical Care Medicine
DX: G47.33 Obstructive sleep apnea (adult) (pediatric) (principal)
CPT/HCPCS: 95811

== ENCOUNTER → 2019-01-10 | Outpatient (CLI) | payer OTHER, SELFPAY ==
[2019-01-05 14:16] VITALS: BMI 37.5
== END | disposition home or self-care (01) ==
LOC: LABSPEC 15:57
PROVIDERS: Family Provider Family Medicine; PCP Family Medicine; Referring Provider Dermatology; Visit Provider Dermatology
DX: L30.9 Dermatitis, unspecified (principal)
CPT/HCPCS: 87070; 87077; 87186; 87205

== ENCOUNTER → 2019-01-16 16:00 | Outpatient (CLI) | payer OTHER, SELFPAY ==
[2019-01-05 14:16] VITALS: BMI 37.5
== END ==
PROVIDERS: Family Provider Family Medicine; PCP Family Medicine; Referring Provider Nurse Practitioner Acute Care; Visit Provider Nurse Practitioner Acute Care
DX: Z46.89 Encounter for fitting and adjustment of other specified devices (principal)

== ENCOUNTER → 2020-06-12 13:17 | Outpatient (CLI) | payer BC, SELFPAY ==
[2020-03-28 13:13] VITALS: BMI 34.3
== END ==
PROVIDERS: PCP Family Medicine; Referring Provider Nurse Practitioner Family; Visit Provider Nurse Practitioner Family
DX: I48.0 Paroxysmal atrial fibrillation (principal); Z98.890 Other specified postprocedural states
CPT/HCPCS: 93225; 93226

== ENCOUNTER → 2020-09-23 14:38 | Outpatient (CLI) | payer BC, SELFPAY ==
[2020-09-23 14:02] VITALS: BMI 36.0
[2020-09-23 15:27] LABS: Anion Gap 7 (5-15); BUN 14 mg/dL (7-18); BUN/Creat Ratio 11.8 RATIO (10-20); Calcium,Total 9.2 mg/dL (8.5-10.1); Chloride 103 mmol/L (98-107); Creatinine, Serum 1.19 mg/dL (0.70-1.30); EST Glomerular Filtration Rate 67 mL/min (>60); Est Glom Filt Rate - Afr Amer 81 mL/min (>60); Glucose 125 mg/dL (74-106); Potassium 3.9 mmol/L (3.5-5.1); Sodium Level 136 mmol/L (136-145); Thyroid Stim Hormone (TSH) 1.83 uIU/mL (0.358-3.74)
== END ==
PROVIDERS: PCP Family Medicine
DX: I48.19 Other persistent atrial fibrillation (principal); I48.4 Atypical atrial flutter
CPT/HCPCS: 36415; 80048; 84439; 84443

== ENCOUNTER → 2022-10-08 | Outpatient (CLI) | payer BC, SELFPAY ==
[2022-10-08 16:50] LABS: Erythrocyte Sedimentation Rate 15 mm/hr (0-20)
[2022-10-08 16:52] LABS: Absolute Neutrophil Count 4.2 X10^3/uL (2.0-7.7); Basophil# 0.03 X10^3/uL; Basophil% 0.4 % (0-1); Eosinophil# 0.16 X10^3/uL; Eosinophils% 2.2 % (0-5); Hematocrit 45.2 % (40-54); Hemoglobin 15.1 g/dL (13.0-16.5); Lymphocyte % 30.7 % (19-41); Mean Corp Hgb Conc 33.4 g/dL (32-36); Mean Corpuscular Hgb 29.2 pg (27.0-32.0); Mean Corpuscular Volume 87.4 fL (80-94); Mean Platelet Vol. 10.3 fl (6.2-12.0); Monocyte# 0.51 X10^3/uL; Monocyte% 7.1 % (0-10); NRBC Flagged by Analyzer 0 % (0-5); Neutrophil # 4.24 X10^3/uL (2.7-7.7); Neutrophil % 59.3 % (47-70); Platelet Count 190 K/mm3 (150-450); RBC Distribution Width CV 12.3 % (11.6-14.6); RBC Distribution Width SD 39.8 fl (35.1-43.9); Red Blood Count 5.17 M/mm3 (4.6-6.2); White Blood Count 7.2 K/mm3 (4.4-11.0)
[2022-10-08 17:15] LABS: AST(SGOT) 40 U/L (15-37); Alanine Aminotransfer ALT/SGPT 47 U/L (16-61); Albumin, Serum 3.9 g/dL (3.2-5.0); Alkaline Phosphatase 54 U/L (45-117); Anion Gap 6 (5-15); BUN 15 mg/dL (7-18); BUN/Creat Ratio 12.8 RATIO (10-20); CRP 4.34 mg/L (0.0-3.0); Calcium,Total 9.4 mg/dL (8.5-10.1); Chloride 108 mmol/L (98-107); Creatinine, Serum 1.17 mg/dL (0.70-1.30); EST Glomerular Filtration Rate 68 mL/min (>60); Est Glom Filt Rate - Afr Amer 82 mL/min (>60); Globulin 3.9 g/dL (2.2-4.2); Glucose 130 mg/dL (74-106); LDH 169 U/L (87-241); Lipase 19 U/L (13-75); Potassium 3.7 mmol/L (3.5-5.1); Protein, Total 7.8 g/dL (6.4-8.2); Sodium Level 137 mmol/L (136-145)
[2022-10-10 16:08] LABS: Anti-Centromere B Ab <0.2 AI (0.0-0.9); Anti-Chromatin <0.2 AI (0.0-0.9); Anti-Jo <0.2 AI (0.0-0.9); Anti-Scleroderma-70 AB <0.2 AI (0.0-0.9); RNP Ab <0.2 AI (0.0-0.9); SJOGREN'S Anti-SS-A test < 0.2 AI (0.0-0.9); SJOGREN'S Anti-SS-B test < 0.2 AI (0.0-0.9); Smith Ab <0.2 AI (0.0-0.9)
[2022-10-11 08:29] LABS: Anti-Mitochondrial AB <20.0 Units (0.0-20.0); Anti-dsDNA Ab <1 IU/mL (0-9)
[2022-10-12 09:23] LABS: Bilirubin, Direct 0.41 mg/dL (0.00-0.30)
[2022-10-12 16:09] LABS: Cytoplasmic Ab (C-ANCA) <1:20 titer (Neg:<1:20); Immunoglobulin A 390 mg/dL (90-386)
[2022-10-12 19:40] LABS: Anti-Smooth Muscle ABS 5 Units (0-19); Carbohydrate AG 19-9 96 U/mL (0-35); Endomysial Antibody IgA Negative (Negative); Perinuclear Ab (P-ANCA) <1:20 titer (Neg:<1:20); t-Transglutaminase IgA <2 U/mL (0-3)
== END | disposition home or self-care (01) ==
LOC: LAB 16:28
PROVIDERS: PCP Family Medicine; Visit Provider Nurse Practitioner Adult Health
DX: K52.9 Noninfective gastroenteritis and colitis, unspecified (principal); R10.13 Epigastric pain; R10.30 Lower abdominal pain, unspecified; R13.10 Dysphagia, unspecified; R17 Unspecified jaundice; Z80.0 Family history of malignant neoplasm of digestive organs
CPT/HCPCS: 36415; 80053; 82248; 82784; 83516; 83615; 83690; 85025; 85652; 86140; 86225; 86235; 86255; 86256; 86301

== ENCOUNTER → 2022-10-16 | Outpatient (CLI) | payer BC, SELFPAY ==
--- NOTE | 2022-10-16 10:51 | US_ITS ---
INDICATION: elevated bili, elevated CA 19-9, epigastric pain -- RUQ EXAMINATION: US Abdomen Limited (quadrant) TECHNIQUE: Chacon-scale and color Doppler imaging was performed of the right upper abdominal quadrant. COMPARISON: None. Findings: The liver is diffusely homogenous with overall increased echogenicity. There is no evidence of contour nodularity. No focal hepatic mass is identified. The main portal vein is normal in size and patent demonstrating hepatopetal flow. The gallbladder is surgically absent. Sonographic Dhillon''s tenderness is not appreciated. There is no evidence of intrahepatic biliary ductal dilatation. The CBD is nondilated measuring 5 mm at the level of the eun hepatis. The visualized portions of the pancreas are unremarkable without evidence of focal or diffuse enlargement. Specifically, the tail is obscured by overlying bowel gas. Right kidney measures 12.6 cm in length. It is normal in echogenicity. No focal renal mass is identified. 2.1 cm parapelvic cyst versus mild pelviectasis in the right kidney. There is no evidence of hydronephrosis. US/Abdomen Limited IMPRESSION: Hyperechoic liver without evidence of contour nodularity. Findings are nonspecific and may be consistent with sequelae of fatty infiltration or other forms of diffuse liver disease. No evidence of focal hepatic mass. 2.1 cm parapelvic cyst versus mild pelviectasis in the right kidney. Remainder of the exam is otherwise unremarkable. Electronically Signed: Markus Bates MD at 17:56 EDT ,
[2022-10-20 16:09] LABS: Calprotectin, Stool 21 ug/g (0-120)
[2022-10-22 00:07] LABS: Pancreatic Elastase, Fecal 142 (>200)
== END | disposition home or self-care (01) ==
PROVIDERS: PCP Family Medicine; Referring Provider Nurse Practitioner Adult Health; Visit Provider Nurse Practitioner Adult Health
DX: R10.13 Epigastric pain (principal); R10.30 Lower abdominal pain, unspecified; R13.10 Dysphagia, unspecified; K52.9 Noninfective gastroenteritis and colitis, unspecified; R17 Unspecified jaundice; R97.8 Other abnormal tumor markers
CPT/HCPCS: 76705; 82653; 83993

== ENCOUNTER → 2022-10-22 | Outpatient (CLI) | payer BC, SELFPAY ==
--- NOTE | 2022-10-22 15:45 | CT_ITS ---
STUDY: CT ABDOMEN AND PELVIS WITH CONTRAST REASON FOR EXAM: Male, 62 years old. Epigastric and lower abd pain, blood in stool RADIATION DOSAGE (If Supplied By Facility): CTDIvol = ( 16.95 ) mGy, DLP = ( 1383.26 ) mGycm TECHNIQUE: Transaxial images were obtained from the dome of the diaphragm to the symphysis pubis with oral contrast. Oral and amp; IV Readi-CAT and amp; 100mL Isovue-370 was administered. Sagittal and coronal images were reconstructed. Individualized dose optimization techniques were used for this CT. COMPARISON: Comparison is made with prior sonogram of the abdomen dated October 16, 2022. FINDINGS: The visualized lung bases are unremarkable. Coronary artery calcification. There is decreased attenuation of the liver consistent with steatosis. The patient is status post cholecystectomy. Normal spleen. Normal pancreas. Normal bilateral adrenal glands. Punctate calculus in the posterior midportion of the right kidney. 2 mm nonobstructive calculus in the lower pole calyx of the left kidney. There is a small hiatal hernia. Normal small intestine. There are multiple colonic diverticula consistent with diverticulosis. The appendix is visualized and appears normal. There is scattered atherosclerotic calcification of the abdominal aorta, without a demonstrated aneurysm. Normal inferior vena cava. Normal retroperitoneum. Normal urinary bladder. Small bilateral inguinal hernias containing fat. Normal osseous structures. CT/Abdomen/Pelvis WITH Contrast IMPRESSION: Sigmoid diverticulosis without radiographic signs of diverticulitis. Fatty infiltration of the liver. Tiny bilateral nonobstructive intrarenal calculi. Electronically Signed: Migue Hsu MD at 12:06 EDT ,
== END | disposition home or self-care (01) ==
LOC: CT 15:44
PROVIDERS: PCP Family Medicine; Referring Provider Nurse Practitioner Adult Health; Visit Provider Nurse Practitioner Adult Health
DX: R10.13 Epigastric pain (principal); R10.30 Lower abdominal pain, unspecified; K52.9 Noninfective gastroenteritis and colitis, unspecified
CPT/HCPCS: 74177; Q9967

== ENCOUNTER → 2022-11-09 | Outpatient (CLI) | payer BC, SELFPAY ==
--- NOTE | 2022-11-09 16:16 | MRI_ITS ---
INDICATION: elevated bili CA19-9, epig pain, abnl liver US EXAMINATION: MRI - MR MRCP W/O Contrast TECHNIQUE: Multiplanar and multisequence MR images of the abdomen were obtained with MRCP sequence. Three-dimensional post-processing reconstructions were performed. IV Contrast Dosage and Agent: None. COMPARISON: None. FINDINGS: LIVER: No mass. Normal morphology. GALLBLADDER AND BILIARY TREE: Status post cholecystectomy. The CBD measures 0.59 cm. There is mild dilatation of the left main hepatic duct is 0.75 cm. The right intrahepatic duct is of normal caliber. There is no evidence of filling defect within the biliary ductal system. The distal common duct tapers normally. PANCREAS: No mass. No pancreatic duct dilation. SPLEEN: Non-enlarged. ADRENAL GLANDS: No nodules. KIDNEYS: Normal renal size and position. No hydronephrosis. No mass. LYMPH NODES: No enlarged periportal or retroperitoneal lymph nodes. PERITONEUM: No ascites or fluid collection. VESSELS: Aorta is non-dilated. LOWER CHEST: No pleural effusion. MRI/MRCP Abdomen without Contrast IMPRESSION: Status post cholecystectomy. Mild dilatation of the left main hepatic duct and of the common duct. This is likely related to prior cholecystectomy. Remainder of MRCP normal. Electronically Signed: Michael Moctezuma MD, AUDREY at 18:22 EDT ,
== END | disposition home or self-care (01) ==
LOC: MRI 16:11
PROVIDERS: PCP Family Medicine; Referring Provider Nurse Practitioner Adult Health; Visit Provider Nurse Practitioner Adult Health
DX: R97.8 Other abnormal tumor markers (principal); R17 Unspecified jaundice; R10.13 Epigastric pain; R93.2 Abnormal findings on diagnostic imaging of liver and biliary tract
CPT/HCPCS: 74181

== ENCOUNTER 2022-12-08 06:49 | Day surgery (SDC) | payer BC, SELFPAY ==
[2022-11-25 14:29] LABS: Anion Gap 9 (5-15); BUN 12 mg/dL (7-18); BUN/Creat Ratio 9.9 RATIO (10-20); Calcium,Total 9.3 mg/dL (8.5-10.1); Chloride 108 mmol/L (98-107); Creatinine, Serum 1.21 mg/dL (0.70-1.30); EST Glomerular Filtration Rate 65 mL/min (>60); Est Glom Filt Rate - Afr Amer 79 mL/min (>60); Glucose 140 mg/dL (74-106); Potassium 4.3 mmol/L (3.5-5.1); Sodium Level 141 mmol/L (136-145)
[2022-12-07 07:55] VITALS: BMI 38.3
--- NOTE | 2022-12-08 08:33 | CL.IE_ITS ---
Patient: BASIM SORIANO Study Date: 12/08/2022 Performing: Nazario Tran MD : [id number] Age: 62 Gender: male PROCEDURES PERFORMED LP02-(13100)REMOVAL OF LOOP RECORDER INDICATIONS Paroxysmal Atrial fibrillation PROCEDURE DETAILS The patient was brought to the Catheterization Lab in the postabsorptive nonsedated state. Informed consent was obtained prior to the procedure. Local anesthetic was given subcutaneously to the left upper chest area with Lidocaine 2%. Incision was made to the right upper chest. ICM Loop Recorder was removed. Steri-strips applied to Lt chest area. The patient tolerated the procedure well. Estimated Blood Loss: 10 ml's IMPLANTED / EX-PLANTED DEVICES DEVICE PARAMETERS CONCLUSIONS / RECOMMENDATIONS Device Conclusions: Successful removal of a patient activated loop recorder. Device Recommendations: Follow up with Primary Care Physician PROCEDURE MEDICATIONS Fentanyl 50 mcg IV Versed 1 mg IV Oxygen: 2 L/min via nasal cannula Antibiotic given in appropriate timeframe. Ancef 2 Gm IV @ 12/08/2022 07:49:49 Signed By Nazario Tran MD On 12/08/2022 08:32:12 Nazario Tran MD
== END 2022-12-08 09:32 | disposition home or self-care (01) ==
LOC: CLSP 06:50
PROVIDERS: Nurse Practitioner Family; PCP Family Medicine; Referring Provider Internal Medicine Cardiovascular Disease; Visit Provider Internal Medicine Cardiovascular Disease
DX: I48.0 Paroxysmal atrial fibrillation (principal); E66.01 Morbid (severe) obesity due to excess calories; Z68.41 Body mass index [BMI] 40.0-44.9, adult; E11.9 Type 2 diabetes mellitus without complications; I10 Essential (primary) hypertension; Z79.84 Long term (current) use of oral hypoglycemic drugs; Z79.899 Other long term (current) drug therapy; E78.5 Hyperlipidemia, unspecified; Z95.818 Presence of other cardiac implants and grafts; Z98.890 Other specified postprocedural states
CPT/HCPCS: 33286; 36415; 80048; 99152; 99153; J7040

== ENCOUNTER 2022-12-11 05:21 | Day surgery (SDC) | payer BC, SELFPAY ==
--- NOTE | 2022-12-11 | COLBX_PTH ---
PATIENT: BASIM SORIANO LOC: EN U#:[id number] AGE/SX: 62/M ROOM: RE12/11/[address]: Dr. Jan Pagan DO : 1960 BED: DIS: 12/11/2022 SPEC #: [id number] RECD: 12/11/22 11:14 STATUS: JONATHAN CORDELL #: [id number] DEACON: 12/11/22 00:[address]: Jan Pagan DEPT: SURGICAL PATHOLOGY RECD BY: Semaj Ochoa ENTERED: 12/11/22 12:13 SP TYPE: COLON BX OTHR DR: Dr. Elder Morales MD Tissues: A - Duodenum, NOS B - Gastric mucous membrane C - Gastric mucous membrane D - Esophagus, NOS E - Ileum, NOS F - Transverse colon G - COLON BIOPSY Procedures: Special Stain Group II Surgery Specimen Level IV Alcian Blue/PAS (control) HEADER OPERATION: Colonoscopy, EGD ([facility]), biopsy PRE-OP DIAGNOSIS: Chronic diarrhea, epigastric pain, dysphagia, lower abdominal pain TISSUE SUBMITTED: A ? Duodenum biopsy, B ? Gastric antrum biopsy for histo and H. pylori, C ? Gastric body biopsy, D ? Distal esophagus biopsy, E ? Terminal ileum biopsy, F ? Transverse polyp biopsy, G ? Random colon biopsy MICROSCOPIC DIAGNOSIS A. Duodenum, biopsy: No pathologic change. B. Gastric antrum, biopsy: Chronic gastritis. See comment. C. Gastric body, biopsy: Chronic gastritis. D. Distal esophagus, biopsy: Fragments of gastric mucosa with chronic inflammation. No evidence of goblet cell metaplasia. See comment. E. Terminal ileum, biopsy: No pathologic change. F. Transverse colon polyp, biopsy Fragments of tubular adenoma. G. Colon, random biopsy: No pathologic change. AM:ember 12/14/2022 COMMENT B. The results of immunohistochemistry for Helicobacter pylori will be reported separately ([id number]). D. Alcian blue/PAS stain with matched control supports the above diagnosis. MICROSCOPIC DESCRIPTION Slides are reviewed. GROSS DESCRIPTION A - Received in fixative is one container labeled with the patient's name and designated duodenum biopsy. The specimen consists of two irregular fragments of light islas soft tissue that in aggregate measure 0.6 x 0.3 x 0.1 cm. The specimen is totally submitted in one cassette. B - Received in fixative is one container labeled with the patient's name and designated gastric antrum biopsy. The specimen consists of one irregular fragment of light islas soft tissue that measures 0.5 x 0.2 x 0.1 cm. The specimen is totally submitted in one cassette. C - Received in fixative is one container labeled with the patient's name and designated gastric body biopsy. The specimen consists of multiple irregular fragments of light islas soft tissue that in aggregate measure 1.0 x 0.3 x 0.1 cm. The specimen is totally submitted in one cassette. D - Received in fixative is one container labeled with the patient's name and designated distal esophagus biopsy. The specimen consists of two irregular fragments of light islas soft tissue that in aggregate measure 0.8 x 0.4 x 0.1 cm. The specimen is totally submitted in one cassette. E - Received in fixative is one container labeled with the patient's name and designated terminal ileum biopsy. The specimen consists of one irregular fragment of light islas soft tissue that measures 0.5 x 0.5 x 0.1 cm. The specimen is totally submitted in one cassette. F - Received in fixative is one container labeled with the patient's name and designated transverse polyp biopsy. The specimen consists of two irregular fragments of light islas soft tissue that in aggregate measure 0.8 x 0.4 x 0.1 cm. The specimen is totally submitted in one cassette. G - Received in fixative is one container labeled with the patient's name and designated random colon biopsy. The specimen consists of multiple irregular fragments of light islas soft tissue that in aggregate measure 1.2 x 0.4 x 0.1 cm. The specimen is totally submitted in one cassette. / SJ:rg 12/13/2022 TC:3 CPT: 00389 x7, 22011
[2022-12-11] MEDS: Lactated Ringers 1,000 ML 15 ML IV (05:54)
[2022-12-11 05:55] VITALS: BP 147/90; PULSE 80; RESP 18; TEMP 37; O2SAT 97; BMI 35.7
--- NOTE | 2022-12-11 06:30 | IMM_PTH ---
PATIENT: BASIM SORIANO LOC: EN U#:[id number] AGE/SX: 62/M ROOM: RE12/11/[address]: Dr. Jan Pagan DO : 1960 BED: DIS: 12/11/2022 SPEC #: [id number] RECD: 12/11/22 12:46 STATUS: JONATHAN RERehan #: [id number] DEACON: 12/11/22 06:[address]: Jan Pagan DEPT: IMMUNOHISTOCHEMISTRY RECD BY: Layne Mittal ENTERED: 12/11/22 12:47 SP TYPE: IMMUNO OTHR DR: Dr. Elder Morales MD Tissues: B - Stomach, NOS Procedures: H Pylori (initial) PHYSICIAN & INSTITUTION [place] [id number] SPECIMEN INFORMATION: Tissue Source: B ? Gastric antrum Clinical Info: Chronic diarrhea, epigastric pain, dysphagia, lower abdominal pain Specimen Number: [id number] CPT code: 42302 METHODOLOGY: Deparaffinized sections of prefer/formalin-fixed tissue or PAP/DQ stained slides are incubated with monoclonal/polyclonal antibodies/oligonucleotide probes. Localization is made via biotin free immunoperoxidase method. Appropriate controls are performed and reacted as expected. Results on target cell population are indicated in the following table: RESULTS: ANTIBODY / CLONE RESULT Block B H Pylori (polyclonal) negative These tests were developed and their performance characteristics determined by [facility]. They may not have been cleared or approved by the U.S. Food and Drug Administration. The FDA has determined that such clearance or approval is not necessary. The above immunohistochemical/dualISH markers are ordered and reviewed by the Pathologist. INTERPRETATION: B. Gastric antrum, biopsy: Negative for Helicobacter pylori organisms. AM:ember 12/14/2022
--- NOTE | 2022-12-11 06:36 | PCM.HP.BLA ---
History and Physical Date of Admission: 12/11/22 62 M who presents to the office today for diarrhea, abdominal pain, need to update endoscopies, MARSHALL. He gets EGD and colonoscopy every 5 yrs. His father of colon and prostate cancer. His mother of pancreatic cancer. He has chronic diarrhea, very watery, started a few months ago. Has at least 5 BMs per day, trying to keep hydrated to prevent flareup of atrial fibrillation. BMs are urgent, often after eating. Rare nocturnal diarrhea. Appeared to have some old blood in the stool. Negative lactoferrin, enteric pathogens, C diff, giardia. Stool has been soft since cholecystectomy in 2013. Getting abd pain in 2 areas, started about 3-4 mos ago, about the same time as diarrhea. Epigastric/lower retrosternal, at least once a week, no triggers he can determine, not related to eating, kept a food log. Spreads across upper abdomen. Lasts 30 min to more than a day. Gets nausea with it, no vomiting. The other abdominal pain is low, almost pelvic, in midline. Doesn't coincide with epigastric pain. This pain doesn't resolve with BM, can last all day, at least once a week. Lots of gas lately.? Feels like food is sticking in esophagus, this is new. Hx esophageal polyps. Occas heartburn. Hiccups chronically since his second heart ablation. No early satiety. 09/2017 most recent EGD and colonoscopy Father had colon cancer and prostate cancer, diagnosed mid-50s when already metastatic. Mother had pancreatic cancer. Liver bx diagnosed MARSHALL per pt, done when he had cholecystectomy in 2013 at [facility] He has DM2, HTN, hyperlipidemia, morbid obesity, MARSHALL, sleep apnea, atrial fibrillation PSH: cholecystectomy, multiple cardioversions, cardiac ablation x 2, implanted loop recorder, rotator cuff ROS Const Constitutional: Positive for fatigue, headache(s), weakness and weight change ENT ENT: Positive for headache(s) and difficulty swallowing Cardio Cardiology: Positive for leg pain with exertion Gastro GI: Positive for abdominal pain, bloating, diarrhea, heartburn, difficulty swallowing and excessive flatus; No belching, change in bowel habits, change in stool character, coffee ground emesis, constipation, cramping, feeling full early, incontinent of stools, Vomiting blood/hematemesis, Blood in stool, loose stools, Black,tarry stools, nausea/dyspepsia, pain with swallowing, vomiting or other Musc Musculoskeletal: Positive for joint pain, joint swelling, muscle weakness and leg pain with exertion Skin Skin: No yellowing of the eye or itchy eyes Neuro Neurology: Positive for weakness and headache(s) Psych Psychiatric: No anxiety and No depression Endo Endocrine: Positive for fatigue and weight change Aller/Imm Allergy/Immunologic: No itchy eyes Salvatore/Lymp Hematologic/Lymphatic: No easy bleeding or easy bruising Exam Const General: cooperative, comfortable and no acute distress Nutritional Appearance: obese Orientation: alert, awake and oriented x3 HENMT Head: normal to inspection Eyes Sclera: sclerae normal Resp Effort & Inspection: normal respiratory effort GI Inspection: obesity Palpation: soft, no hepatosplenomegaly, no masses and tender in the epigastrum, in the LLQ and in the RLQ Skin General: no rashes or lesions noted Neuro Speech: speech normal Gait: normal gait Psych Mood: euthymic mood Quality Reporting Tobacco Screening ([facility] 138) Smoking Status: Never smoker Assessment and Plan Assessment and Plan (1) Chronic diarrhea: ?Status:?Chronic ?Plan: 62 yr old male with diarrhea, epigastric pain, dysphagia, lower abdominal pain, possible blood in stool. We will address his MARSHALL later. Stool tests were negative for infection. Will test for EPI with fecal pancreatic elastase. Other potential causes for diarrhea include bile acid, diabetes, microscopic colitis, IBS, IBD. Try colestipol 1-2 grams at HS, at least 1 hr after other meds. We will get EGD and colonoscopy, f/u in office 2 wks later. Blood tests today, will call him with results. CT abd pel w/ oral and IV contrast, with prednisone and benedryl prep due to contrast allergy. (2) Epigastric pain: ?Status:?Chronic ?Plan: DDx includes gerd, gastritis, bile reflux, EPI, pancreatitis (3) Dysphagia: ?Status:?Chronic ?Plan: Need to eval for esophageal stricture, Maloney's. He has hx of esophageal polyps. Has intermittent reflux. (4) Lower abdominal pain: ?Status:?Acute ?Plan: DDx includes colitis, IBS, IBD, diverticular disease (5) FH: pancreatic cancer: ?Status:?Acute ? ? ? Orders: Orders Pancreatic Elastase, Fecal Today K52.9 - Noninfective gastroenteritis and colitis, unspecified, R10.13 - Epigastric pain, R10.30 - Lower abdominal pain, unspecified, R13.10 - Dysphagia, unspecified ? Comprehensive Metabolic Profil Today K52.9 - Noninfective gastroenteritis and colitis, unspecified, R10.13 - Epigastric pain, R10.30 - Lower abdominal pain, unspecified, R13.10 - Dysphagia, unspecified ? CRP Today K52.9 - Noninfective gastroenteritis and colitis, unspecified, R10.13 - Epigastric pain, R10.30 - Lower abdominal pain, unspecified, R13.10 - Dysphagia, unspecified ? LDH Today K52.9 - Noninfective gastroenteritis and colitis, unspecified, R10.13 - Epigastric pain, R10.30 - Lower abdominal pain, unspecified, R13.10 - Dysphagia, unspecified ? Lipase Today K52.9 - Noninfective gastroenteritis and colitis, unspecified, R10.13 - Epigastric pain, R10.30 - Lower abdominal pain, unspecified, R13.10 - Dysphagia, unspecified ? CBC W/Diff, Automated Today K52.9 - Noninfective gastroenteritis and colitis, unspecified, R10.13 - Epigastric pain, R10.30 - Lower abdominal pain, unspecified, R13.10 - Dysphagia, unspecified ? Erythrocyte Sed Rate Today K52.9 - Noninfective gastroenteritis and colitis, unspecified, R10.13 - Epigastric pain, R10.30 - Lower abdominal pain, unspecified, R13.10 - Dysphagia, unspecified ? Calprotectin, Stool Today K52.9 - Noninfective gastroenteritis and colitis, unspecified, R10.13 - Epigastric pain, R10.30 - Lower abdominal pain, unspecified, R13.10 - Dysphagia, unspecified ? Celiac Disease Profile Today K52.9 - Noninfective gastroenteritis and colitis, unspecified, R10.13 - Epigastric pain, R10.30 - Lower abdominal pain, unspecified, R13.10 - Dysphagia, unspecified ? Anti-Mitochondrial AB Today K52.9 - Noninfective gastroenteritis and colitis, unspecified, R10.13 - Epigastric pain, R10.30 - Lower abdominal pain, unspecified, R13.10 - Dysphagia, unspecified ? LANDON Comprehensive Panel Today K52.9 - Noninfective gastroenteritis and colitis, unspecified, R10.13 - Epigastric pain, R10.30 - Lower abdominal pain, unspecified, R13.10 - Dysphagia, unspecified ? ANCA Today K52.9 - Noninfective gastroenteritis and colitis, unspecified, R10.13 - Epigastric pain, R10.30 - Lower abdominal pain, unspecified, R13.10 - Dysphagia, unspecified ? Anti-Smooth Muscle ABS Today K52.9 - Noninfective gastroenteritis and colitis, unspecified, R10.13 - Epigastric pain, R10.30 - Lower abdominal pain, unspecified, R13.10 - Dysphagia, unspecified ? Abdomen/Pelvis WITH Contrast Today K52.9 - Noninfective gastroenteritis and colitis, unspecified, R10.13 - Epigastric pain, R10.30 - Lower abdominal pain, unspecified ? Carbohydrate AG 19-9 Today R10.13 - Epigastric pain, Z80.0 - Family history of malignant neoplasm of digestive organs ? Medications: New colestipol ?1-2 tablets orally at bedtime? 60 tabs 2RF diarrhea ? ? prednisone ?50 mg orally [address] scan, 7 hours before, and 1 hour before. also take benedryl 50 mg [address] 3 tabs 0RF ? ? I have examined the patient and the H&P has been reviewed. There are no clinical changes since date of exam.
[2022-12-11 07:10] VITALS: BP 100/68; BP 147/90; PULSE 78; RESP 18; TEMP 36.6; O2SAT 95
[2022-12-11 07:15] VITALS: BP 103/67; BP 147/90; PULSE 75; RESP 18; O2SAT 95
[2022-12-11 07:20] VITALS: BP 147/90; BP 97/47; PULSE 76; RESP 18; O2SAT 98
--- NOTE | 2022-12-11 07:20 | OP.CCLET_ITS ---
12/11/2022 Elder Morales MD Re : Upper GI endoscopy procedure for Suresh Ahuja Dear Dr. Morales This procedure was performed on Sunday, December 11, 2022. My impressions and recommendations are as follows: Impressions : - Z-line irregular, 39 cm from the incisors. Biopsied. - Chronic gastritis. Biopsied. - Erythematous duodenopathy. Biopsied. Recommendations : - Discharge patient to home. - Resume previous diet. - Continue present medications. - Await pathology results. My findings are described in the full procedure note, which is enclosed. If I can be of further assistance, please feel free to contact me at . Sincerely, Jan Pagan, 12/11/2022 7:19:27 AM This report has been signed electronically.
--- NOTE | 2022-12-11 07:20 | OP.EGD_ITS ---
Patient Name: Suresh Ahuja Procedure Date: 12/11/2022 6:22 AM Date of : 1960 Age: 62 Procedure: Upper GI endoscopy Indications: Epigastric abdominal pain, Abdominal pain in the left lower quadrant Providers: Jan Pagan DO Referring MD: Elder Morales MD Medicines: Monitored Anesthesia Care Patient Profile: This is a 62 year old male. Refer to note in patient chart for documentation of history and physical. Patient has symptoms of chronic abdominal cramping and chronic left lower quadrant abdominal pain. Complications: No immediate complications. Procedure: Pre-Anesthesia Assessment: - Prior to the procedure, a History and Physical was performed, and patient medications and allergies were reviewed. The patient is competent. The risks and benefits of the procedure and the sedation options and risks were discussed with the patient. All questions were answered and informed consent was obtained. Patient identification and proposed procedure were verified by the physician. Mental Status Examination: alert and oriented. Airway Examination: normal oropharyngeal airway and neck mobility. Respiratory Examination: clear to auscultation. CV Examination: normal. Prophylactic Antibiotics: The patient does not require prophylactic antibiotics. Prior Anticoagulants: The patient has taken no previous anticoagulant or antiplatelet agents. ASA Grade Assessment: II - A patient with mild systemic disease. After reviewing the risks and benefits, the patient was deemed in satisfactory condition to undergo the procedure. The anesthesia plan was to use monitored anesthesia care (MAC). Immediately prior to administration of medications, the patient was re-assessed for adequacy to receive sedatives. The heart rate, respiratory rate, oxygen saturations, blood pressure, adequacy of pulmonary ventilation, and response to care were monitored throughout the procedure. The physical status of the patient was re-assessed after the procedure. After obtaining informed consent, the endoscope was passed under direct vision. Throughout the procedure, the patient's blood pressure, pulse, and oxygen saturations were monitored continuously. The pediatric colonoscope was introduced through the mouth, and advanced to the second part of duodenum. The upper GI endoscopy was accomplished without difficulty. The patient tolerated the procedure well. Scope In: 6:43:05 AM Scope Out: 6:49:34 AM Total Procedure Duration Time 0 hours 6 minutes 29 seconds Findings: The Z-line was irregular and was found 39 cm from the incisors. Biopsies were taken with a cold forceps for histology. Verification of patient identification for the specimen was done. Estimated blood loss was minimal. Patchy mild inflammation characterized by congestion (edema) and erosions was found in the gastric body and in the gastric antrum. Biopsies were taken with a cold forceps for histology. Verification of patient identification for the specimen was done. Estimated blood loss was minimal. Patchy mildly erythematous mucosa without active bleeding and with no stigmata of bleeding was found in the duodenal bulb and in the first portion of the duodenum. Biopsies were taken with a cold forceps for histology. Verification of patient identification for the specimen was done. Estimated blood loss was minimal. Impression: - Z-line irregular, 39 cm from the incisors. Biopsied. - Chronic gastritis. Biopsied. - Erythematous duodenopathy. Biopsied. Recommendation: - Discharge patient to home. - Resume previous diet. - Continue present medications. - Await pathology results. Procedure Code(s): --- Professional --- 47477, Esophagogastroduodenoscopy, flexible, transoral; with biopsy, single or multiple CPT copyright 2017 [employer]. All rights reserved. The codes documented in this report are preliminary and upon air sealing technician review may be revised to meet current compliance requirements. Jan Pagan DO 12/11/2022 7:19:27 AM This report has been signed electronically. Number of Addenda: 0 Note Initiated On: 12/11/2022 6:22 AM
[2022-12-11 07:25] VITALS: BP 113/74; BP 147/90; PULSE 76; RESP 18; TEMP 36.6; O2SAT 96
--- NOTE | 2022-12-11 07:25 | OP.COLON_ITS ---
Patient Name: Suresh Ahuja Procedure Date: 12/11/2022 6:51 AM Date of : 1960 Age: 62 Procedure: Colonoscopy Indications: Clinically significant diarrhea of unexplained origin, Family history of colon cancer in a first-degree relative Providers: Jan Pagan DO Referring MD: Elder Morales MD Medicines: Monitored Anesthesia Care Patient Profile: This is a 62 year old male. Refer to note in patient chart for documentation of history and physical. Patient has symptoms of chronic abdominal cramping and chronic left lower quadrant abdominal pain. Last Colonoscopy: 5 years ago. Complications: No immediate complications. Procedure: Pre-Anesthesia Assessment: - Prior to the procedure, a History and Physical was performed, and patient medications and allergies were reviewed. The patient is competent. The risks and benefits of the procedure and the sedation options and risks were discussed with the patient. All questions were answered and informed consent was obtained. Patient identification and proposed procedure were verified by the physician. Mental Status Examination: alert and oriented. Airway Examination: normal oropharyngeal airway and neck mobility. Respiratory Examination: clear to auscultation. CV Examination: normal. Prophylactic Antibiotics: The patient does not require prophylactic antibiotics. Prior Anticoagulants: The patient has taken no previous anticoagulant or antiplatelet agents. ASA Grade Assessment: II - A patient with mild systemic disease. After reviewing the risks and benefits, the patient was deemed in satisfactory condition to undergo the procedure. The anesthesia plan was to use monitored anesthesia care (MAC). Immediately prior to administration of medications, the patient was re-assessed for adequacy to receive sedatives. The heart rate, respiratory rate, oxygen saturations, blood pressure, adequacy of pulmonary ventilation, and response to care were monitored throughout the procedure. The physical status of the patient was re-assessed after the procedure. After I obtained informed consent, the scope was passed under direct vision. Throughout the procedure, the patient's blood pressure, pulse, and oxygen saturations were monitored continuously. The pediatric colonoscope was introduced through the anus and advanced to the terminal ileum. The colonoscopy was performed without difficulty. The patient tolerated the procedure well. The quality of the bowel preparation was adequate. Scope In: 6:52:04 AM Scope Withdrawal Time 0 hours 10 minutes 55 seconds Scope Out: 7:05:42 AM Total Procedure Duration Time 0 hours 13 minutes 38 seconds Findings: The perianal and digital rectal examinations were normal. Multiple small and large-mouthed diverticula were found in the recto-sigmoid colon, sigmoid colon and descending colon. A 6 mm polyp was found in the transverse colon. The polyp was sessile. The polyp was removed with a cold snare. Resection and retrieval were complete. Verification of patient identification for the specimen was done. Estimated blood loss was minimal. An area of mildly congested mucosa was found in the recto-sigmoid colon, in the sigmoid colon, at the splenic flexure and in the ascending colon. Biopsies for histology were taken with a cold forceps from the entire colon for evaluation of microscopic colitis. The terminal ileum appeared normal. Biopsies were taken with a cold forceps for histology. Verification of patient identification for the specimen was done. Estimated blood loss was minimal. Impression: - Diverticulosis in the recto-sigmoid colon, in the sigmoid colon and in the descending colon. - One 6 mm polyp in the transverse colon, removed with a cold snare. Resected and retrieved. - Congested mucosa in the recto-sigmoid colon, in the sigmoid colon, at the splenic flexure and in the ascending colon. Biopsied. - The examined portion of the ileum was normal. Biopsied. Recommendation: - Discharge patient to home. - Resume previous diet. - Continue present medications. - Await pathology results. - Repeat colonoscopy in 5 years for surveillance. Procedure Code(s): --- Professional --- 95536, Colonoscopy, flexible; with removal of tumor(s), polyp(s), or other lesion(s) by snare technique 07746, 59, Colonoscopy, flexible; with biopsy, single or multiple CPT copyright 2017 [employer]. All rights reserved. The codes documented in this report are preliminary and upon plastic surgeon review may be revised to meet current compliance requirements. Jan Pagan DO 12/11/2022 7:25:28 AM This report has been signed electronically. Number of Addenda: 0 Note Initiated On: 12/11/2022 6:51 AM
--- NOTE | 2022-12-11 07:26 | OP.CCLET_ITS ---
12/11/2022 Elder Morales MD Re : Colonoscopy procedure for Suresh Ahuja Dear Dr. Morales This procedure was performed on Sunday, December 11, 2022. My impressions and recommendations are as follows: Impressions : - Diverticulosis in the recto-sigmoid colon, in the sigmoid colon and in the descending colon. - One 6 mm polyp in the transverse colon, removed with a cold snare. Resected and retrieved. - Congested mucosa in the recto-sigmoid colon, in the sigmoid colon, at the splenic flexure and in the ascending colon. Biopsied. - The examined portion of the ileum was normal. Biopsied. Recommendations : - Discharge patient to home. - Resume previous diet. - Continue present medications. - Await pathology results. - Repeat colonoscopy in 5 years for surveillance. My findings are described in the full procedure note, which is enclosed. If I can be of further assistance, please feel free to contact me at . Sincerely, Jan Pagan DO 12/11/2022 7:25:28 AM This report has been signed electronically.
== END 2022-12-11 07:57 | disposition home or self-care (01) ==
LOC: EN 05:21 → AC 05:22
PROVIDERS: PCP Family Medicine; Referring Provider Family Medicine; Visit Provider Internal Medicine Gastroenterology
PROC: 0DJD8ZZ Inspection of Lower Intestinal Tract, Via Natural or Artificial Opening Endoscopic (ICD-10-PCS; CPT 45378; principal; 2022-12-11 06:25)
DX: K29.50 Unspecified chronic gastritis without bleeding (principal); Z68.41 Body mass index [BMI] 40.0-44.9, adult; E11.9 Type 2 diabetes mellitus without complications; D12.3 Benign neoplasm of transverse colon; K57.30 Diverticulosis of large intestine without perforation or abscess without bleeding; Z80.0 Family history of malignant neoplasm of digestive organs; I10 Essential (primary) hypertension; E78.5 Hyperlipidemia, unspecified; E66.1 Drug-induced obesity; K75.81 Nonalcoholic steatohepatitis (NASH); Z90.49 Acquired absence of other specified parts of digestive tract; Z79.899 Other long term (current) drug therapy; Z79.84 Long term (current) use of oral hypoglycemic drugs; K21.00 Gastro-esophageal reflux disease with esophagitis, without bleeding
CPT/HCPCS: 45380; 45385; 43239; 88305; 88313; 88342; J7120; J2405

== ENCOUNTER → 2023-01-06 | Outpatient (CLI) | payer BC, SELFPAY ==
[2023-01-08 15:08] LABS: Cytoplasmic Ab (C-ANCA) <1:20 titer (Neg:<1:20); Gastrin, Serum 24 pg/mL (0-115); Perinuclear Ab (P-ANCA) <1:20 titer (Neg:<1:20)
== END | disposition home or self-care (01) ==
PROVIDERS: PCP Family Medicine; Referring Provider Internal Medicine Gastroenterology; Visit Provider Internal Medicine Gastroenterology
DX: R93.2 Abnormal findings on diagnostic imaging of liver and biliary tract (principal); R97.8 Other abnormal tumor markers
CPT/HCPCS: 36415; 82941; 86256

== ENCOUNTER → 2023-02-10 | Outpatient (CLI) | payer BC, SELFPAY | END | disposition home or self-care (01) | LOC: LABSPEC 13:26 | PROVIDERS: PCP Family Medicine; Referring Provider Internal Medicine Gastroenterology; Visit Provider Internal Medicine Gastroenterology | DX: K58.9 Irritable bowel syndrome, unspecified (principal); R93.2 Abnormal findings on diagnostic imaging of liver and biliary tract; R97.8 Other abnormal tumor markers | CPT/HCPCS: 83630; 87506 ==

== ENCOUNTER → 2023-02-19 | Outpatient (CLI) | payer BC, SELFPAY ==
[2023-02-22 22:06] LABS: Pancreatic Elastase, Fecal 121 (>200)
[2023-02-25 22:06] LABS: Calprotectin, Stool 42 ug/g (0-120); Fats, Neutral Normal (.); Fats, Total Normal (.)
== END | disposition home or self-care (01) ==
LOC: LABSPEC 09:58
PROVIDERS: PCP Family Medicine; Referring Provider Internal Medicine Gastroenterology; Visit Provider Internal Medicine Gastroenterology
DX: R93.2 Abnormal findings on diagnostic imaging of liver and biliary tract (principal); R97.8 Other abnormal tumor markers
CPT/HCPCS: 82653; 82705; 83993; 87177; 87209; 87329

== ENCOUNTER → 2023-05-14 | Outpatient (CLI) | payer BC, SELFPAY ==
--- NOTE | 2023-05-14 07:58 | NM_ITS ---
CLINICAL: 62-year-old male with history of diarrhea. SEMI-SOLID PHASE 99m Tc SULFUR COLLOID GASTRIC EMPTYING STUDY COMPARISON: None available FINDINGS: The patient was administered 1.1 mCi of 99m Tc sulfur colloid mixed with oatmeal and consumed per os. Image acquisitions in the anterior -posterior projections were obtained for 60 minutes. There is prompt visualization of the stomach. There is no gastroesophageal reflux identified. Zero order kinetics are maintained throughout the duration of the acquisitions. There is rapid-accelerated emptying of the gastric contents noted during 60 minutes of sequential imaging. The T ? raw data emptying was calculated to be 10.62 minutes, (Normal 12-56 minutes). NM/Gastric Emptying Study IMPRESSION: 1. There is accelerated solid phase gastric emptying compared to normal controls. (Audie et al, J Nucl Med Tech 38: 186, 2010). Electronically Signed: Ross Wright DO at 9:26 EST ,
== END | disposition home or self-care (01) ==
LOC: NM 07:57
PROVIDERS: PCP Family Medicine; Referring Provider Internal Medicine Gastroenterology; Visit Provider Internal Medicine Gastroenterology
DX: K52.9 Noninfective gastroenteritis and colitis, unspecified (principal)
CPT/HCPCS: 78264; A9541

== ENCOUNTER → 2023-06-09 | Outpatient (CLI) | payer BC, SELFPAY ==
[2023-06-09 12:31] LABS: Erythrocyte Sedimentation Rate 13 mm/hr (0-20)
[2023-06-09 13:21] LABS: CRP < 2.90 mg/L (0.0-3.0); Rheumatoid Factor < 10.0 IU/mL (<15)
[2023-06-11 16:09] LABS: Albumin 3.9 g/dL (2.9-4.4); Alpha-1-Globulins 0.3 g/dL (0.0-0.4); Alpha-2-Globulins 0.9 g/dL (0.4-1.0); CCP IgG Antibodies 3 units (0-19); Gamma Globulin 0.7 g/dL (0.4-1.8); Gastrin, Serum 24 pg/mL (0-115); Immunoglobulin A 362 mg/dL (90-386); Immunoglobulin G 812 mg/dL (603-1613); Immunoglobulin M 119 mg/dL (20-172)
== END | disposition home or self-care (01) ==
LOC: LAB 11:19
PROVIDERS: PCP Family Medicine; Referring Provider Internal Medicine Gastroenterology; Visit Provider Internal Medicine Gastroenterology
DX: R97.8 Other abnormal tumor markers (principal); K52.9 Noninfective gastroenteritis and colitis, unspecified; Z80.0 Family history of malignant neoplasm of digestive organs
CPT/HCPCS: 36415; 82784; 82941; 84165; 85652; 86140; 86200; 86334; 86431

== ENCOUNTER → 2023-06-14 | Outpatient (CLI) | payer BC, SELFPAY ==
[2023-06-22 17:07] LABS: Dopamine, 24Ur 138 ug/24 hr (0-510); Dopamine, UR 52 ug/L (Undefined); Epinephrine, 24Ur < 8 ug/24 hr (0-20); Epinephrine, Ur < 3 ug/L (Undefined); Norepinephrine, 24Ur < 40 ug/24 hr (0-135); Norepinephrine, Ur < 15 ug/L (Undefined); VMA, 24UR 3.2 mg/24 hr (0.0-7.5); VMA, UR 1.2 mg/L (Undefined)
== END | disposition home or self-care (01) ==
LOC: LABSPEC 07:28
PROVIDERS: PCP Family Medicine; Referring Provider Internal Medicine Gastroenterology; Visit Provider Internal Medicine Gastroenterology
DX: R97.8 Other abnormal tumor markers (principal); Z80.0 Family history of malignant neoplasm of digestive organs; K52.9 Noninfective gastroenteritis and colitis, unspecified
CPT/HCPCS: 81050; 82384; 84585

== ENCOUNTER → 2023-07-16 | Outpatient (CLI) | payer BC, SELFPAY ==
[2023-07-16 15:35] LABS: Absolute Lymphocyte Count 2.34 X10^3/uL (0.83-4.51); Absolute Neutrophil Count 4.9 X10^3/uL (2.0-7.7); Basophil# 0.04 X10^3/uL; Basophil% 0.5 % (0-1); Eosinophil# 0.21 X10^3/uL; Eosinophils% 2.6 % (0-5); Hematocrit 46.1 % (40-54); Hemoglobin 15.5 g/dL (13.0-16.5); Lymphocyte # 2.34 X10^3/ul (0.83-4.51); Lymphocyte % 28.5 % (19-41); Mean Corp Hgb Conc 33.6 g/dL (32-36); Mean Corpuscular Hgb 29.3 pg (27.0-32.0); Mean Corpuscular Volume 87.1 fL (80-94); Mean Platelet Vol. 10.5 fl (6.2-12.0); Monocyte# 0.67 X10^3/uL; Monocyte% 8.2 % (0-10); NRBC Flagged by Analyzer 0 % (0-5); Neutrophil # 4.93 X10^3/uL (2.7-7.7); Neutrophil % 59.8 % (47-70); Platelet Count 193 K/mm3 (150-450); RBC Distribution Width CV 13.2 % (11.6-14.6); RBC Distribution Width SD 41.4 fl (35.1-43.9); Red Blood Count 5.29 M/mm3 (4.6-6.2); White Blood Count 8.2 K/mm3 (4.4-11.0)
[2023-07-16 15:52] LABS: BNP,B-Type NATRIURETIC PEPTIDE 17.7 pg/mL (0-100)
[2023-07-16 16:04] LABS: ALB/GLOB Ratio 1.1 RATIO (0.9-2.4); AST(SGOT) 32 U/L (15-37); Alanine Aminotransfer ALT/SGPT 35 U/L (16-61); Alkaline Phosphatase 50 U/L (45-117); Anion Gap 5 (5-15); BUN 10 mg/dL (7-18); BUN/Creat Ratio 9.1 RATIO (10-20); Calcium,Total 9.2 mg/dL (8.5-10.1); Chloride 113 mmol/L (98-107); EST Glomerular Filtration Rate 72 mL/min (>60); Est Glom Filt Rate - Afr Amer 88 mL/min (>60); Globulin 3.6 g/dL (2.2-4.2); Glucose 110 mg/dL (74-106); Protein, Total 7.6 g/dL (6.4-8.2); Sodium Level 143 mmol/L (136-145)
== END | disposition home or self-care (01) ==
LOC: LAB 14:58
PROVIDERS: PCP Family Medicine; Referring Provider Nurse Practitioner Family; Visit Provider Nurse Practitioner Family
DX: R06.00 Dyspnea, unspecified (principal); I48.0 Paroxysmal atrial fibrillation; Z98.890 Other specified postprocedural states
CPT/HCPCS: 36415; 80053; 83880; 85025

== ENCOUNTER → 2023-08-27 | Outpatient (CLI) | payer BC, SELFPAY ==
--- NOTE | 2023-08-27 08:07 | ECHOD_ITS ---
Reason For Study: KEATING Procedure This was a 2D Doppler, Color Flow transthoracic echocardiogram. Exam performed in department. Left Ventricle Normal LV size. Left ventricular systolic function is normal. The estimated ejection fraction is 60 %. Normal diastology for age. No regional wall motion abnormalities noted. Right Ventricle Normal RV size. Normal systolic function. Atria Normal left atrium. Normal right atrium. Mitral Valve Normal mitral valve. Tricuspid Valve Normal tricuspid valve. Aortic Valve Trisinus/trileaflet aortic valve. Pulmonic Valve Normal pulmonic valve. Great Vessels Normal aortic root. The pulmonary artery is normal size. Normal inferior vena cava. Pericardium/Pleural No pericardial effusion. MMode/2D Measurements & Calculations LVIDd: 4.8 cm IVSd: 0.94 cm Ao root diam: 3.3 cm LVIDs: 3.2 cm LVPWd: 0.98 cm RVDd: 3.6 cm FS: 32.6 % LAV(MOD-bp): 34.9 ml LVAd ap4: 36.7 cm2 SV(MOD-sp4): 76.3 ml LAV(MOD-bp) Indexed: 14.3 ml/m2 LVLd ap4: 8.6 cm LAV(MOD-sp2): 32.1 ml EDV(MOD-sp4): 125.6 ml LAV(MOD-sp4): 36.6 ml EDV(sp4-el): 132.6 ml LVAs ap4: 19.9 cm2 LVLs ap4: 7.2 cm ESV(MOD-sp4): 49.3 ml ESV(sp4-el): 46.9 ml EF(MOD-sp4): 60.8 % EF(sp4-el): 64.6 % SV(sp4-el): 85.7 ml LA A4 area: 15.2 cm2 LA dimension(2D): 3.8 cm RA A4 area: 13.3 cm2 TAPSE: 2.1 cm Time Measurements MV dec time: 0.27 sec Doppler Measurements & Calculations MV E max varghese: 80.7 cm/sec Lat Peak E' Varghese: 14.1 cm/sec Med Peak E' Varghese: 14.1 cm/sec MV A max varghese: 69.6 cm/sec E/E' lat: 5.7 E/E' med: 5.7 MV E/A: 1.2 Ao V2 max: 115.4 cm/sec LV V1 max: 90.5 cm/sec PA V2 max: 117.5 cm/sec Ao max P.3 mmHg LV V1 max P.3 mmHg ECHO/Echo Complete Interpretation Summary Normal LV size. Left ventricular systolic function is normal. The estimated ejection fraction is 60 %. Normal diastology for age. Structurally normal valves. Ordering Physician: Jose Eduardo Okeefe/Nazario Marc Referring Physician: TEJINDER HERNANDEZ Performed By: Lucie Caicedo RDCS
== END | disposition home or self-care (01) ==
LOC: CVS 07:50
PROVIDERS: PCP Family Medicine; Referring Provider Nurse Practitioner Family; Visit Provider Nurse Practitioner Family
DX: R06.02 Shortness of breath (principal); I48.0 Paroxysmal atrial fibrillation; Z98.890 Other specified postprocedural states
CPT/HCPCS: 93306

== ENCOUNTER → 2023-09-30 | Outpatient (CLI) | payer BC, SELFPAY ==
--- NOTE | 2023-09-30 12:05 | STRESSREP ---
Stress Test Report Pharmacologic myocardial perfusion stress test. 63-year-old male with a history of dyspnea Resting EKG demonstrates sinus rhythm with a rate of 85 bpm. Resting blood pressure is 118/70 mmHg. 0.4 mg of regadenoson was infused per usual protocol followed by rapid intravenous saline flush injection. Continuous EKG monitoring was performed. The maximum heart rate was 95 bpm which was 59% of max impacted heart rate the maximum workload was 1 metabolic equivalent. At rest there were no ST or T wave changes noted to suggest ischemia and at peak infusion nonspecific ST changes were noted which did not meet the criteria for ischemia. No clinical angina is noted. The final blood pressure was 118/78 mmHg. Myocardial perfusion protocol. 14 point mCi of technetium 99m sestamibi was injected at rest. 0.4 mg of regadenoson was infused per usual protocol. At peak infusion 44.5 mCi of technetium 99m sestamibi was injected stress images were obtained stress and rest images were reconstructed and compared in the short axis vertical long and horizontal long axis. Gated images were also obtained. Perfusion SPECT analysis: Review of the stress images demonstrate normal uptake of tracer noted in all areas of the myocardium. The resting images similar demonstrated normal uptake of tracer noted in all areas of the myocardium. No areas of reversibility are noted to suggest ischemia and no previous infarct is noted. Gated SPECT analysis: The gated ejection fraction is 63%. Conclusion: Normal pharmacologic myocardial perfusion stress test. Preserved ejection fraction.
== END | disposition home or self-care (01) ==
LOC: NM 06:27
PROVIDERS: PCP Family Medicine; Referring Provider Nurse Practitioner Family; Visit Provider Nurse Practitioner Family
DX: R06.00 Dyspnea, unspecified (principal); E66.01 Morbid (severe) obesity due to excess calories; Z68.41 Body mass index [BMI] 40.0-44.9, adult; E11.9 Type 2 diabetes mellitus without complications
CPT/HCPCS: 78452; 93017; A9500; A4216; J2785

== ENCOUNTER → 2024-02-01 | Outpatient (CLI) | payer BC, SELFPAY ==
[2024-02-02 19:07] LABS: Carbohydrate Ag 19-9 2261 82 U/mL (0-35)
== END | disposition home or self-care (01) ==
LOC: LAB 11:32
PROVIDERS: PCP Family Medicine; Referring Provider Student in an Organized Health Care Education/Training Program; Visit Provider Student in an Organized Health Care Education/Training Program
DX: R97.8 Other abnormal tumor markers (principal)
CPT/HCPCS: 36415; 86301

== ENCOUNTER → 2024-09-13 | Outpatient (CLI) | payer BC, SELFPAY ==
--- NOTE | 2024-09-13 18:07 | STRESSREP ---
Stress Test Report Pharmacologic myocardial perfusion stress test. 63-year-old with a history of chest pain Resting EKG demonstrates normal sinus rhythm with premature ventricular complex with a rate of 90 bpm. Resting blood pressure is 138/78 mmHg. 0.4 mg of regadenoson was infused per usual protocol followed by rapid intravenous saline flush injection. Continuous EKG monitoring was performed. The maximum heart rate was 103 bpm which was 64% of max impacted heart rate the maximum workload was 1 metabolic equivalent. At rest there were no ST or T wave changes noted to suggest ischemia and at peak infusion nonspecific ST changes were noted which did not meet the criteria for ischemia. No clinical angina is noted. The final blood pressure was 120/64 mmHg. Myocardial perfusion protocol. 14.6 mCi of technetium 99m sestamibi was injected at rest. 0.4 mg of regadenoson was infused per usual protocol. At peak infusion 44.5 mCi of technetium 99m sestamibi was injected stress images were obtained stress and rest images were reconstructed and compared in the short axis vertical long and horizontal long axis. Gated images were also obtained. Perfusion SPECT analysis: Review of the stress images demonstrate normal uptake of tracer noted in all areas of the myocardium. The resting images similar demonstrated normal uptake of tracer noted in all areas of the myocardium. No areas of reversibility are noted to suggest ischemia and no previous infarct is noted. Gated SPECT analysis: The gated ejection fraction is 60%. Conclusion: Normal pharmacologic myocardial perfusion stress test. Preserved ejection fraction.
== END | disposition home or self-care (01) ==
LOC: CVS 06:44
PROVIDERS: PCP Family Medicine; Referring Provider Physician Assistant Medical; Visit Provider Physician Assistant Medical
DX: R06.09 Other forms of dyspnea (principal); R07.9 Chest pain, unspecified
CPT/HCPCS: 78452; 93017; A9500; A4216; J2785